=== PATIENT | male | born 1940 | race Caucasian/White ===

== ENCOUNTER 2021-04-14 01:54 | Inpatient (IN) | payer MEDICARE, OTHER ==
[~2021-04-14] VITALS: Ht 175.3 cm; Wt 79.4 kg
--- NOTE | 2021-04-14 02:10 | NUR ---
Patient BIB [facility] from home for c/o low 02 sats. Patient's Son states that patient 02 sats at home was 90% and was instructed to by PMD to go to ER. Patient's tested positive for covid 10 days ago.
[2021-04-14 02:26] LABS: CARBON DIOXIDE 22 mmol/L (21-32); CHLORIDE 102 mmol/L (98-107); CREATININE 3.4 mg/dL (0.6-1.3); GLUCOSE 163 mg/dL (74-106); POTASSIUM 3.3 mmol/L (3.5-5.1); UREA NITROGEN, BLOOD 45 mg/dL (7-18)
[2021-04-14 02:28] LABS: HEMATOCRIT 29.7 % (36.7-47.1); MEAN CORPUSCULAR HEMOGLOBIN 31.4 uug (23.8-33.4); MEAN CORPUSCULAR VOLUME 92.4 fL (73.0-96.2); PLATELET COUNT (AUTO) 115 K/uL (152-348)
[2021-04-14] MEDS ORDERED: DEXAMETHASONE SOD PHOSPHATE 4 MG INJ IV ONE (02:30)
[2021-04-14 02:45] LABS: ALANINE AMINOTRANSFERASE 30 U/L (16-63); ALKALINE PHOSPHATASE 93 U/L (50-136); ASPARTATE AMINOTRANSFERASE 44 U/L (15-37); BILIRUBIN,TOTAL 0.5 mg/dL (0.2-1.0); FERRITIN 758 ng/mL (26-388)
[2021-04-14] MEDS ORDERED: POTASSIUM BICARBONATE/CIT AC 25 MEQ TABLET.EFF PO ONE (03:00)
[2021-04-14] MEDS ORDERED: DEXAMETHASONE SOD PHOSPHATE 10 MG INJ ONE (03:00)
[2021-04-14] MEDS ORDERED: POTASSIUM BICARBONATE/CIT AC 25 MEQ TABLET.EFF ONE (03:08)
[2021-04-14] MEDS ORDERED: LEVO50TA8 PO (03:10)
[2021-04-14] MEDS ORDERED: RUXO10TA PO (03:10)
[2021-04-14] MEDS ORDERED: ASPI-1420 PO (03:10)
[2021-04-14] MEDS ORDERED: TAMS-3 PO (03:10)
--- NOTE | 2021-04-14 03:25 | NUR ---
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
--- NOTE | 2021-04-14 03:38 | NUR ---
Dr Hess spoke to Dr Gonzalez who accepted patient to in patient Tele.
[2021-04-14 04:00] VITALS: BP 130/66
--- NOTE | 2021-04-14 04:30 | NUR ---
Transfered to 3rd floor Tele via gurny with no distress noted.
[2021-04-14] MEDS ORDERED: MORPHINE SULFATE 2 MG/1 ML DISP.SYRIN IV PRN (05:00)
--- NOTE | 2021-04-14 05:01 | NUR ---
Admitted patient to Tele unit from ER accompanied by staff nurse via renato.Dx of covid PNA. Patient awake and alert verbally responsive , pitcairn islander speaking with O2 at LMP via Nc saturating at 92-93%.Ambulates to bathroom .Iv on right AC 18 g patent and intact.Notified of the admission. Awaiting for orders.
[2021-04-14] MEDS ORDERED: ONDANSETRON 4 MG/2 ML VIAL IV PRN (06:45)
[2021-04-14] MEDS ORDERED: TEMAZEPAM 15 MG CAPSULE PO PRN (06:45)
[2021-04-14] MEDS ORDERED: POTASSIUM CHLORIDE 20 MEQ in IV 1/2NS 1000 ML 1,000 ML IV PRN ×2 (06:45→08:00)
[2021-04-14] MEDS: PANTOPRAZOLE SODIUM 40 MG TABLET.DR PO SCH (07:07)
[2021-04-14] MEDS: LEVOTHYROXINE SODIUM 50 MCG TABLET PO SCH (07:07)
[2021-04-14] MEDS ORDERED: IV NS 1000 ML 1,000 ML IV ONE (08:00)
--- NOTE | 2021-04-14 08:00 | NUR ---
AWAKE ALERT AND ORIENTED X3, DENIES PAIN OR ACUTE DISTRESS WITH 3L NC SATURATING 93-94%. NOTED DRY COUGH. SR ON MONITOR. SEEN BY DR SMALLS
[2021-04-14] MEDS ORDERED: RUXOLITINIB PHOSPHATE 10 MG PO SCH (09:00)
[2021-04-14] MEDS: ACETAMINOPHEN 325 MG TABLET PO PRN (09:10)
[2021-04-14] MEDS: ASCORBIC ACID 500 MG TABLET PO SCH (09:10)
[2021-04-14] MEDS: ASPIRIN EC 81 MG TABLET.DR PO SCH (09:10)
[2021-04-14] MEDS: CHOLECALCIFEROL 1,000 UNIT TABLET PO SCH (09:10)
[2021-04-14] MEDS: HEPARIN SODIUM,PORCINE 5,000 UNITS/ML VIAL SQ SCH ×2 (09:30→20:35)
[2021-04-14] MEDS: [UNRECOGNIZED DRUG - OTHER] PO SCH ×2 (10:35→16:47)
[2021-04-14] MEDS: RUXOLITINIB 10 MG PO SCH ×2 (10:35→16:47)
[2021-04-14 11:38] VITALS: BP 129/60
--- NOTE | 2021-04-14 12:51 | NUR ---
SEEN BY DR VANG FOR PULMONOLOGY FOLLOW-UP SEE NOTES
[2021-04-14 15:52] VITALS: BP 117/46
[2021-04-14 20:00] VITALS: BP 112/53
[2021-04-14] MEDS: DOCUSATE SODIUM 100 MG CAPSULE PO SCH (20:33)
[2021-04-14] MEDS: TAMSULOSIN HCL 0.4 MG CAP.SR.24H PO SCH (20:33)
[2021-04-14] MEDS ORDERED: DOCUSATE SODIUM 250 MG CAPSULE PO SCH (21:00)
--- NOTE | 2021-04-14 22:54 | NUR ---
Received awake on bed with continuous O2 at 3lpm via NC, saturating at 91%. Denies pain and discomfort at this time. Midline inserted on MALACHI, flushed with NS and remains patent and intact. All needs attended. Call light placed within reach. Routine visual checks done. Will continue to monitor.
[2021-04-15] VITALS: BP 107/44
--- NOTE | 2021-04-15 00:12 | NUR ---
Patient desaturated at 74% on O2 at 2lpm via NC. HOB elevated, Ventolin inhaler given at 0029H. Patient put on O2 at 10L via non-rebreather, saturating at 91%. Rechecked patient at 0100H, O2 sat 98%. Call light placed within reach. Frequent visual checks done. Will continue to monitor.
[2021-04-15] MEDS: ALBUTEROL SULFATE 8 GM HFA.AER.AD IH PRN ×2 (00:19→10:54)
[2021-04-15 02:08] LABS: *BILIRUBIN,URIN NEGATIVE (NEGATIVE); *BLOOD, URINE 2+ (NEGATIVE); *CLARITY,URINE SLIGHTLY CLOUDY (CLEAR); *COLOR,URINE YELLOW (YELLOW); *KETONES,URINE NEGATIVE (NEGATIVE); *UROBILINOGEN,URINE 0.2 E.U./dl (NORMAL); LEUKOCYTE ESTERASE ,URINE NEGATIVE (NEGATIVE); NITRITE, URINE NEGATIVE (NEGATIVE); PH,URINE 5.5 (5.0-8.0); UGLUCOSE TRACE (NEGATIVE)
[2021-04-15 02:23] LABS: *CREATININE,URINE 197.3 mg/dL (30-125)
[2021-04-15 04:00] VITALS: BP 100/49
[2021-04-15 04:12] LABS: BACTERIA,URINE FEW /HPF (NONE SEEN); SQUAMOUS EPITHELIAL CELL,UR MODERATE /HPF (NONE SEEN); WBC,URINE 0-3 /HPF (0-3)
[2021-04-15 04:13] LABS: COARSE GRANULAR CASTS,URINE FEW /LPF; URINE AMORPHOUS URATE MODERATE /HPF
[2021-04-15] MEDS: PANTOPRAZOLE SODIUM 40 MG TABLET.DR PO SCH (06:02)
[2021-04-15] MEDS: LEVOTHYROXINE SODIUM 50 MCG TABLET PO SCH (06:02)
--- NOTE | 2021-04-15 06:37 | NUR ---
Patient slept intermittently throughout the night. On continuous O2 at 10 lpm via non-rebreather mask, saturating at 91-94%. Toileting assistance rendered. All needs attended. Call light placed within reach. Routine visual checks done. Will endorse to next shift for continuity of care.
[2021-04-15 07:31] LABS: HEMATOCRIT 27.9 % (36.7-47.1); MEAN CORPUSCULAR HEMOGLOBIN 31.4 uug (23.8-33.4); MEAN CORPUSCULAR VOLUME 94.5 fL (73.0-96.2); PLATELET COUNT (AUTO) 121 K/uL (152-348)
[2021-04-15 07:47] LABS: IRON, SERUM 16 ug/dL (50-175)
[2021-04-15 07:52] LABS: THYROID STIMULATING HORMONE 0.415 mIU/mL (0.358-3.740)
--- NOTE | 2021-04-15 08:00 | NUR ---
Pt received to care awake, oriented x4. Pt was on non-rebreather mask with O2 at 10lpm, saturating 80-84. Pt was adjusted to 15lpm. PRN Albuterol offered. Saturation 86-91%. PT notified. Pt is on continues oxygen monitoring. Pt denies distress. Pt has nonproductive occasional cough. Pt is compliant with medications. Spoke with the family, who requested updates. Pt is asked to use the urinal or comode and not to go to the bathroom and not to take off the mask. Patient verbalizes understanding. Pt is positioned upright in bed. Will continue to monitor.
[2021-04-15 08:15] LABS: ALANINE AMINOTRANSFERASE 44 U/L (16-63); ALKALINE PHOSPHATASE 114 U/L (50-136); ASPARTATE AMINOTRANSFERASE 78 U/L (15-37); BILIRUBIN,TOTAL 0.4 mg/dL (0.2-1.0); CARBON DIOXIDE 24 mmol/L (21-32); CHLORIDE 106 mmol/L (98-107); CHOLESTEROL 109 mg/dL (<200); FERRITIN 1560 ng/mL (26-388); GLUCOSE 111 mg/dL (74-106); HDL CHOLESTEROL 15 mg/dL (40-60); LACTATE DEHYDROGENASE 622 U/L (85-227); MAGNESIUM 2.5 mg/dL (1.8-2.4); PHOSPHOROUS 3.3 mg/dL (2.5-4.9); POTASSIUM 4.7 mmol/L (3.5-5.1); TOTAL PROTEIN, SERUM 6.5 g/dL (6.4-8.2); TRIGLYCERIDES 182 MG/DL (30-150); UREA NITROGEN, BLOOD 45 mg/dL (7-18)
[2021-04-15] MEDS: [UNRECOGNIZED DRUG - OTHER] PO SCH (08:24)
[2021-04-15] MEDS: RUXOLITINIB 10 MG PO SCH (08:24)
[2021-04-15] MEDS: ASCORBIC ACID 500 MG TABLET PO SCH (08:25)
[2021-04-15] MEDS: ASPIRIN EC 81 MG TABLET.DR PO SCH (08:25)
[2021-04-15] MEDS: CHOLECALCIFEROL 1,000 UNIT TABLET PO SCH (08:25)
[2021-04-15] MEDS: HEPARIN SODIUM,PORCINE 5,000 UNITS/ML VIAL SQ SCH ×2 (08:26→20:57)
[2021-04-15] MEDS ORDERED: DEXAMETHASONE SOD PHOSPHATE 4 MG INJ IV SCH (09:00)
--- NOTE | 2021-04-15 11:30 | NUR ---
Pt c/o nausea. PRN Zofran 4 mg Ivp was given at 1104. Pt states it was effective.
[2021-04-15 12:00] VITALS: BP 114/52
[2021-04-15] MEDS ORDERED: REMDESIVIR (CHARGED) 200 MG in IV NORMAL SALINE 210 ML IV ONE (13:00)
[2021-04-15] MEDS: DEXAMETHASONE SOD PHOSPHATE 4 MG INJ IV SCH ×2 (13:09→21:10)
[2021-04-15 16:23] VITALS: BP 110/51
--- NOTE | 2021-04-15 18:55 | NUR ---
Patient remains on 15 lpm on nonrebreather mask. O2 level 92-97%. Pt denies distress. Pt had poor intake, states he is not hungry and will eat later. Pt denies pain.
--- NOTE | 2021-04-15 20:00 | NUR ---
Pt on oxygen at 15L via non rebreather mask saturating 92%, no signs of distress. Denies pain or discomfort. IV access intact and patent. Safety measures initiated, repositioned comfortably in bed, call light within reach.
[2021-04-15] MEDS: DOCUSATE SODIUM 100 MG CAPSULE PO SCH (20:10)
[2021-04-15] MEDS: JAKAFI 10 MG PO SCH (20:10)
[2021-04-15] MEDS: TAMSULOSIN HCL 0.4 MG CAP.SR.24H PO SCH (20:11)
[2021-04-15 20:32] VITALS: BP 106/48
[2021-04-16 00:26] VITALS: BP 127/64
[2021-04-16 04:30] VITALS: BP 108/48
[2021-04-16] MEDS: DEXAMETHASONE SOD PHOSPHATE 4 MG INJ IV SCH ×3 (05:38→21:06)
[2021-04-16] MEDS: PANTOPRAZOLE SODIUM 40 MG TABLET.DR PO SCH (06:07)
[2021-04-16] MEDS: LEVOTHYROXINE SODIUM 50 MCG TABLET PO SCH (06:07)
--- NOTE | 2021-04-16 06:14 | NUR ---
Slept intermittently, assistance provided as needed. Oral care done. Repositioning done in bed for comfort. Tolerated due medications well. All needs attended to and met. No significant change in condition noted through the night.
[2021-04-16 07:46] LABS: HEMATOCRIT 30.5 % (36.7-47.1); MEAN CORPUSCULAR HEMOGLOBIN 30.6 uug (23.8-33.4); MEAN CORPUSCULAR VOLUME 94.1 fL (73.0-96.2); PLATELET COUNT (AUTO) 124 K/uL (152-348)
[2021-04-16 08:08] LABS: ALANINE AMINOTRANSFERASE 156 U/L (16-63); ALKALINE PHOSPHATASE 147 U/L (50-136); ASPARTATE AMINOTRANSFERASE 207 U/L (15-37); BILIRUBIN,DIRECT 0.2 mg/dL (0.0-0.2); BILIRUBIN,TOTAL 0.4 mg/dL (0.2-1.0); CARBON DIOXIDE 24 mmol/L (21-32); CHLORIDE 106 mmol/L (98-107); CREATININE 1.9 mg/dL (0.6-1.3); GLUCOSE 194 mg/dL (74-106); POTASSIUM 4.7 mmol/L (3.5-5.1); TOTAL PROTEIN, SERUM 6.9 g/dL (6.4-8.2); UREA NITROGEN, BLOOD 49 mg/dL (7-18)
[2021-04-16] MEDS: JAKAFI 10 MG PO SCH ×2 (08:10→21:06)
[2021-04-16] MEDS: CHOLECALCIFEROL 1,000 UNIT TABLET PO SCH (08:10)
[2021-04-16] MEDS: ASCORBIC ACID 500 MG TABLET PO SCH (08:10)
[2021-04-16] MEDS: ASPIRIN EC 81 MG TABLET.DR PO SCH (08:10)
[2021-04-16] MEDS: HEPARIN SODIUM,PORCINE 5,000 UNITS/ML VIAL SQ SCH ×2 (08:12→21:44)
[2021-04-16 11:08] VITALS: BP 126/45
[2021-04-16] MEDS: REMDESIVIR (CHARGED) 100 MG in IV NORMAL SALINE 100 ML IV SCH (13:16)
[2021-04-16 15:28] VITALS: BP 117/63
--- NOTE | 2021-04-16 19:23 | NUR ---
Patient resting in bed. AOx3-4. On 15L O2 via nonrebreather mask, saturating at 92%. No signs of acute distress. Patient denies pain/ discomfort. Left upper arm midline IV access, intact and patent. Safety measures provided. Needs anticipated and met. Will endorse to incoming shift for continuity of care. Addendum: 04/16/21 at 1929 by EASTON AGUILAR RN user error
--- NOTE | 2021-04-16 19:29 | NUR ---
Patient resting in bed. AO3-4. On 15L O2 via nonrebreather mask, saturating at 92%. No signs of acute distress. Patient denies pain/ discomfort. Left upper arm midline IV access, intact and patent. Safety measures provided. Needs anticipated and met. Will endorse to incoming shift for continuity of care.
[2021-04-16 20:18] VITALS: BP 126/45
[2021-04-16] MEDS: TAMSULOSIN HCL 0.4 MG CAP.SR.24H PO SCH (21:05)
[2021-04-16] MEDS: DOCUSATE SODIUM 100 MG CAPSULE PO SCH (21:05)
[2021-04-17 00:03] VITALS: BP 128/55
[2021-04-17 04:18] VITALS: BP 114/54
[2021-04-17] MEDS: DEXAMETHASONE SOD PHOSPHATE 4 MG INJ IV SCH ×3 (06:03→21:15)
[2021-04-17] MEDS: PANTOPRAZOLE SODIUM 40 MG TABLET.DR PO SCH (06:04)
[2021-04-17] MEDS: LEVOTHYROXINE SODIUM 50 MCG TABLET PO SCH (06:04)
--- NOTE | 2021-04-17 06:48 | NUR ---
PAtient awake verbally responsive guyanese speaking.On 15L O2 via nonrebreather mask, saturating at 91%-92%. No signs of acute distress.HOB remain elevated.Breathing tx given. Left upper arm midline IV access, intact and patent. Safety measures provided.Continue on isolation for covid. Needs anticipated and met. Will endorse to incoming shift for continuity of care.
[2021-04-17] MEDS: JAKAFI 10 MG PO SCH ×2 (08:00→21:14)
--- NOTE | 2021-04-17 08:00 | NUR ---
Pt is in no acute distress. DR GONZALEZ and Sarah here to see patient. New orders received and carried out. 02 sat 91% o2 @ 15L NRB mask. Pt american speaking but able to make his needs known.
[2021-04-17 08:21] LABS: HEMATOCRIT 33.2 % (36.7-47.1); MEAN CORPUSCULAR HEMOGLOBIN 30.9 uug (23.8-33.4); MEAN CORPUSCULAR VOLUME 94.3 fL (73.0-96.2); PLATELET COUNT (AUTO) 168 K/uL (152-348)
[2021-04-17] MEDS: ASPIRIN EC 81 MG TABLET.DR PO SCH (08:34)
[2021-04-17] MEDS: CHOLECALCIFEROL 1,000 UNIT TABLET PO SCH (08:34)
[2021-04-17] MEDS: ASCORBIC ACID 500 MG TABLET PO SCH (08:34)
[2021-04-17] MEDS: HEPARIN SODIUM,PORCINE 5,000 UNITS/ML VIAL SQ SCH ×2 (08:36→21:33)
[2021-04-17 08:48] LABS: ALANINE AMINOTRANSFERASE 144 U/L (16-63); ALKALINE PHOSPHATASE 139 U/L (50-136); ASPARTATE AMINOTRANSFERASE 107 U/L (15-37); BILIRUBIN,DIRECT 0.2 mg/dL (0.0-0.2); BILIRUBIN,TOTAL 0.5 mg/dL (0.2-1.0); CARBON DIOXIDE 24 mmol/L (21-32); CHLORIDE 106 mmol/L (98-107); CREATININE 1.4 mg/dL (0.6-1.3); GLUCOSE 150 mg/dL (74-106); POTASSIUM 4.4 mmol/L (3.5-5.1); TOTAL PROTEIN, SERUM 6.9 g/dL (6.4-8.2); UREA NITROGEN, BLOOD 54 mg/dL (7-18)
--- NOTE | 2021-04-17 10:30 | NUR ---
HENRIK done. PT put on HIGH FLOW 40 lit @ 100%+NRB @15 LIT by RT. Addendum: 04/17/21 at 1823 by JOVAN MONTOYA RN 02 sat 94%.
[2021-04-17 12:00] VITALS: BP 114/67
--- NOTE | 2021-04-17 12:30 | NUR ---
PT was only able to tolerate prone position for 5 mins.
[2021-04-17 12:45] LABS: ABG BASE EXCESS 0.3 mmol/L; ABG HCO3 23.5 mmol/L; ABG PH 7.471 (7.350-7.450); ABG PO2 60.2 mmHg (75.0-100.0); ABG SITE RIGHT RADIAL; ABG TOTAL HEMOGLOBIN 11.1 G/dL (13.5-18.0); COHb 0.4 % (0.5-1.5); MetHb 0.3 % (0.0-1.5); O2Hb 88.9 % (94.0-97.0); VENT MODE HF - 40 Lpm - 100%
[2021-04-17] MEDS: REMDESIVIR (CHARGED) 100 MG in IV NORMAL SALINE 100 ML IV SCH (13:14)
[2021-04-17 16:00] VITALS: BP 119/54
--- NOTE | 2021-04-17 18:26 | NUR ---
o2 sat 96%. pt is in no acute distress. High flow 40 lit @100% + NRB 15 lit.
[2021-04-17 20:20] VITALS: BP 112/51
[2021-04-17] MEDS: TAMSULOSIN HCL 0.4 MG CAP.SR.24H PO SCH (21:15)
[2021-04-17] MEDS: DOCUSATE SODIUM 100 MG CAPSULE PO SCH (21:15)
[2021-04-18] VITALS (8 sets, daily range): BP systolic 117–129; BP diastolic 42–56
[2021-04-18] MEDS: LEVOTHYROXINE SODIUM 50 MCG TABLET PO SCH (06:04)
[2021-04-18] MEDS: DEXAMETHASONE SOD PHOSPHATE 4 MG INJ IV SCH ×3 (06:04→22:17)
[2021-04-18] MEDS: PANTOPRAZOLE SODIUM 40 MG TABLET.DR PO SCH (06:04)
--- NOTE | 2021-04-18 06:56 | NUR ---
Pt in no acute distress.Slept throughout the night. Denies having SOB. Sating 88-94%. IV site intact. Safety and comfort provided. Will endorse to day shift.
[2021-04-18 07:18] LABS: HEMATOCRIT 31.1 % (36.7-47.1); MEAN CORPUSCULAR VOLUME 92.5 fL (73.0-96.2); PLATELET COUNT (AUTO) 189 K/uL (152-348)
[2021-04-18 07:38] LABS: BILIRUBIN,DIRECT 0.3 mg/dL (0.0-0.2); BILIRUBIN,TOTAL 0.8 mg/dL (0.2-1.0); CREATININE 1.3 mg/dL (0.6-1.3); POTASSIUM 4.4 mmol/L (3.5-5.1); TOTAL PROTEIN, SERUM 6.2 g/dL (6.4-8.2)
[2021-04-18] MEDS: ASPIRIN EC 81 MG TABLET.DR PO SCH (08:27)
[2021-04-18] MEDS: ASCORBIC ACID 500 MG TABLET PO SCH (08:27)
[2021-04-18] MEDS: CHOLECALCIFEROL 1,000 UNIT TABLET PO SCH (08:27)
[2021-04-18] MEDS: HEPARIN SODIUM,PORCINE 5,000 UNITS/ML VIAL SQ SCH ×2 (08:28→20:12)
[2021-04-18] MEDS: JAKAFI 10 MG PO SCH ×2 (08:50→20:08)
[2021-04-18] MEDS: REMDESIVIR (CHARGED) 100 MG in IV NORMAL SALINE 100 ML IV SCH (12:37)
--- NOTE | 2021-04-18 12:37 | NUR ---
REMDESIVIR INFUSSION STARTED ORDERED WITH NO ADVERSE OR ALLERGIC REACTIONS AT THIS TIME.
[2021-04-18 14:03] LABS: *BILIRUBIN,URIN NEGATIVE (NEGATIVE); *BLOOD, URINE NEGATIVE (NEGATIVE); *COLOR,URINE YELLOW (YELLOW); *KETONES,URINE NEGATIVE (NEGATIVE); *UROBILINOGEN,URINE 0.2 E.U./dl (NORMAL); LEUKOCYTE ESTERASE ,URINE NEGATIVE (NEGATIVE); NITRITE, URINE NEGATIVE (NEGATIVE); PH,URINE 5.5 (5.0-8.0)
[2021-04-18 14:10] LABS: UGLUCOSE 2+ (NEGATIVE)
[2021-04-18 14:13] LABS: *CLARITY,URINE SLIGHTLY HAZY (CLEAR)
[2021-04-18 14:14] LABS: BACTERIA,URINE FEW /HPF (NONE SEEN); RBC,URINE 0-3 /HPF (0-3); SQUAMOUS EPITHELIAL CELL,UR FEW /HPF (NONE SEEN); URIC ACID CRYSTALS,URINE FEW /HPF (NONE SEEN); URINE AMORPHOUS URATE FEW /HPF; WBC,URINE 0-3 /HPF (0-3)
--- NOTE | 2021-04-18 14:40 | NUR ---
REMDESIVIR COMPLETED ORDERED WITH NO ADVERSE OR ALLERGIC REACTIONS AT THIS TIME.
[2021-04-18] MEDS ORDERED: ACETAMINOPHEN 650 MG/20.3 ML LIQUID UDC NG ONE (15:15)
[2021-04-18] MEDS ORDERED: diphenhydrAMINE 50 MG/1 ML VIAL IV ONE (15:15)
[2021-04-18] MEDS ORDERED: methylPREDNISolone SOD SUCC 40 MG/ML VIAL IV ONE (15:15)
[2021-04-18 15:42] LABS: BAND % (MANUAL) 4 % (0-10); LYMPHOCYTES % (MANUAL) 6 % (20-40); MONOCYTES % (MANUAL) 5 % (2-10); NEUTROPHILS % (MANUAL) 85 % (42-75)
[2021-04-18] MEDS ORDERED: TOCILIZUMAB 600 MG in IV NORMAL SALINE 70 ML IV ONE (16:00)
--- NOTE | 2021-04-18 19:30 | NUR ---
RECEIVED PT AWAKE, ALERT AND ORIENTEDX3. PT IN NO ACUTE DISTRESS. IV INTACT. PT ON DOUBLE SETUP OXYGEN.PT ON HIGH FLOW 40L/MIN AND NONREBREATHER MASK15%. PT ON SINUS RHYTHM. SON VISITED AND GAVE THE NURSE DENTURES CUP FOR HIS DAD. SAFETY AND COMFORT PROVIDED. WILL CONTINUE TO MONITOR.
[2021-04-18] MEDS: DOCUSATE SODIUM 100 MG CAPSULE PO SCH (20:08)
[2021-04-18] MEDS: TAMSULOSIN HCL 0.4 MG CAP.SR.24H PO SCH (20:08)
[2021-04-18] MEDS: ACETAMINOPHEN 325 MG TABLET PO PRN (20:15)
[2021-04-19] VITALS: BP 114/49
[2021-04-19 04:00] VITALS: BP 122/51
[2021-04-19] MEDS: DEXAMETHASONE SOD PHOSPHATE 4 MG INJ IV SCH ×3 (05:55→21:26)
[2021-04-19] MEDS: LEVOTHYROXINE SODIUM 50 MCG TABLET PO SCH (06:27)
[2021-04-19] MEDS: PANTOPRAZOLE SODIUM 40 MG TABLET.DR PO SCH (06:27)
--- NOTE | 2021-04-19 06:33 | NUR ---
PT SLEPT INTERMITTENTLY. PT IN NO ACUTE RESPIRATORY DISTRESS. IV INTACT. PT IN 40L/MIN HIGHFLOW OXYGEN WITH NONREBREATHER MASK ON 15%. PT ON SINUS RHYTHM. PRESCRIBED MEDICATION GIVEN AND PT TOLERATED IT WELL. TYLENOL 650 MG PRN GIVEN AT 2015H.SAFETY AND COMFORT PROVIDED. ALL NEEDS ARE MET. WILL ENDORSE TO INCOMING NURSE FOR CONTINUITY OF CARE.
[2021-04-19 06:37] LABS: HEMATOCRIT 31.2 % (36.7-47.1); MEAN CORPUSCULAR HEMOGLOBIN 29.9 uug (23.8-33.4); MEAN CORPUSCULAR VOLUME 92.2 fL (73.0-96.2); PLATELET COUNT (AUTO) 197 K/uL (152-348)
[2021-04-19 07:02] LABS: BILIRUBIN,DIRECT 0.2 mg/dL (0.0-0.2); BILIRUBIN,TOTAL 0.7 mg/dL (0.2-1.0); CREATININE 1.3 mg/dL (0.6-1.3); MAGNESIUM 2.8 mg/dL (1.8-2.4); PHOSPHOROUS 4.4 mg/dL (2.5-4.9); POTASSIUM 4.6 mmol/L (3.5-5.1)
--- NOTE | 2021-04-19 07:30 | NUR ---
received in bed awake and alert oriented. on high flow 40lpm fio2 100% nc and nrb 15lpm. breathing even and non labored. comfortable. spo2 96%. denies pain at this time. occasional non productive coughing noted. justin midline intact and patent. bed low and locked. encouraged to use call light when he needs anything. call light within easy reach. will continue to monitor.
[2021-04-19] MEDS: CHOLECALCIFEROL 1,000 UNIT TABLET PO SCH (09:18)
[2021-04-19] MEDS: JAKAFI 10 MG PO SCH ×2 (09:18→19:59)
[2021-04-19] MEDS: ASCORBIC ACID 500 MG TABLET PO SCH (09:18)
[2021-04-19] MEDS: ASPIRIN EC 81 MG TABLET.DR PO SCH (09:19)
[2021-04-19] MEDS: HEPARIN SODIUM,PORCINE 5,000 UNITS/ML VIAL SQ SCH ×2 (09:19→21:25)
--- NOTE | 2021-04-19 09:50 | NUR ---
Spoke with patient's son Art and given update. He was appreciative.
--- NOTE | 2021-04-19 10:02 | NUR ---
Per [facility] patient's son is authorized to visit 2 hrs in the patient's room. Son is aware.
[2021-04-19 10:59] VITALS: BP 112/60
--- NOTE | 2021-04-19 11:07 | NUR ---
Patient on high nc flow 40 lpm fio2 100% tolerating very well. Sitting at edge of bed with son at bedside. Breathing even and non labored. Denies pain or difficulty breathing. spo2 97%.
--- NOTE | 2021-04-19 12:28 | NUR ---
Patient on nc high flow 40 lpm fio2 100% tolerating well. spo2 95-96%. denies pain or difficulty breathing. patient using urinal with son's assistance. no sob noted.
[2021-04-19] MEDS: REMDESIVIR (CHARGED) 100 MG in IV NORMAL SALINE 100 ML IV SCH (12:54)
--- NOTE | 2021-04-19 14:30 | NUR ---
Remdesivir completed with no adverse or allergic reaction noted at this time.
[2021-04-19 15:44] VITALS: BP 139/54
[2021-04-19] MEDS: ENSURE ENLIVE (VAN) 240 ML LIQUID PO SCH (17:15)
--- NOTE | 2021-04-19 17:16 | NUR ---
Patient resting in bed on hi flow nc 40 lpm fio2 100%. No sob noted. spo2 92%. Bed low and locked. Call light within reach.
--- NOTE | 2021-04-19 19:00 | NUR ---
Patient was on high flow 40lpm fio2 100% nc for most of the afternoon but has shortness of breath on exertion. Put on high flow 40 lpm fio2 100% and nrb 15 lpm to keep o2 saturation above 92%. Current spo2 is 97%. Breathing non labored. No s/sx of pain or discomfort. Patient appears comfortable. Safety measures maintained. Needs attended. Will endorse accordingly.
--- NOTE | 2021-04-19 19:30 | NUR ---
RECEIVED PT AWAKE, ALERT AND ORIENTEDX3. PT ON HIGH FLOW OXYGEN 40L/MIN AND 15% NONREBREATHER MASK IN CONTINUOUS PULSE OXIMETER. PT ON SINUS RHYTHM. IV INTACT. CAN MAKE HIS NEEDS KNOWN. SAFETY AND COMFORT PROVIDED. WILL CONTINUE TO MONITOR.
[2021-04-19 20:00] VITALS: BP 126/57
[2021-04-19] MEDS: TAMSULOSIN HCL 0.4 MG CAP.SR.24H PO SCH (20:00)
[2021-04-19] MEDS: DOCUSATE SODIUM 100 MG CAPSULE PO SCH (20:00)
[2021-04-19] MEDS: ACETAMINOPHEN 325 MG TABLET PO PRN (20:09)
[2021-04-20] VITALS: BP 124/56
[2021-04-20 04:00] VITALS: BP 111/55
[2021-04-20] MEDS: DEXAMETHASONE SOD PHOSPHATE 4 MG INJ IV SCH ×3 (05:27→21:34)
[2021-04-20] MEDS: PANTOPRAZOLE SODIUM 40 MG TABLET.DR PO SCH (06:13)
[2021-04-20] MEDS: LEVOTHYROXINE SODIUM 50 MCG TABLET PO SCH (06:13)
--- NOTE | 2021-04-20 06:14 | NUR ---
PT SLEPT INTERMITTENTLY. PT IN NO ACUTE DISTRESS. IV INTACT. PRESCRIBED MEDICATION GIVEN AND PT TOLERATED IT WELL. PT ON HIGH FLOW AND NONREBREATHER MASK. PT ON SINUS RHYTHM. TYLENOL PRN 650MG GIVEN AT 2009H. SON CALLED TO GET UPDATE REGARDING HIS DAD. AT 0545H PT ACCIDENTALLY PULLED OUT HIS OXYGEN. RN WENT TO HIS ROOM AND FIX IT. PT IN NO ACUTE DISTRESS. PT OXYGEN SATURATION IS 94%. TOLD PT TO BE CAREFUL. SAFETY AND COMFORT PROVIDED. WILL ENDORSE TO INCOMING NURSE FOR CONTINUITY OF CARE.
[2021-04-20 08:00] VITALS: BP 125/56
--- NOTE | 2021-04-20 08:00 | NUR ---
Received patient awake, alert/oriented x3. No distress noted. On high flow, double set up, saturating at 90-94%. IV site, intact, no infiltration seen. Kept on his comfortable position. Denies pain. Call light within reach. Will continue to monitor. Safety precaution maintained.
[2021-04-20] MEDS: JAKAFI 10 MG PO SCH ×2 (08:34→20:15)
[2021-04-20] MEDS: ASPIRIN EC 81 MG TABLET.DR PO SCH (08:35)
[2021-04-20] MEDS: ASCORBIC ACID 500 MG TABLET PO SCH (08:35)
[2021-04-20] MEDS: CHOLECALCIFEROL 1,000 UNIT TABLET PO SCH (08:35)
[2021-04-20] MEDS: HEPARIN SODIUM,PORCINE 5,000 UNITS/ML VIAL SQ SCH ×2 (08:36→20:17)
[2021-04-20] MEDS: ENSURE ENLIVE (VAN) 240 ML LIQUID PO SCH ×2 (08:37→16:02)
--- NOTE | 2021-04-20 10:30 | NUR ---
Patient son is at bedside. Patient denies pain and SOB. Morning care done. Safety measures maintained. Kept call light within reach. Will continue to monitor.
[2021-04-20 11:00] VITALS: BP 120/58
[2021-04-20 16:00] VITALS: BP 125/60
--- NOTE | 2021-04-20 17:42 | NUR ---
Patient had episodes of desaturation at 87-90% with minimal exertion. Saturating at 95-97% most of the time. Denies pain. Assisted with all his needs. Noted with 1xBM, sample sent to the lab as ordered for occult blood. Uses urinal and commode at bedside. IV line intact. MD made rounds, Dr. Bobby and Dr Chakraborty, orders acknowledged. Per MD Infectious dis consulted. All due meds given as ordered. Needs attended. Kept comfortable and repositioned to promote comfort. Call light within reach. Safety measures maintained. Will continue to monitor fo any significant changes.
--- NOTE | 2021-04-20 18:29 | NUR ---
Patient denies discomfort. He is saturating at 96% on high flow. Comfortably lying in his bed. Denies pain. Kept call light within reach. Will endorsed to the next shift.
[2021-04-20 20:00] VITALS: BP 114/69
[2021-04-20] MEDS: DOCUSATE SODIUM 100 MG CAPSULE PO SCH (20:16)
[2021-04-20] MEDS: TAMSULOSIN HCL 0.4 MG CAP.SR.24H PO SCH (20:16)
[2021-04-20] MEDS: FUROSEMIDE 20 MG/2 ML VIAL IV SCH (20:17)
[2021-04-21] VITALS: BP 117/65
[2021-04-21] MEDS: TEMAZEPAM 7.5 MG CAPSULE PO PRN ×2 (00:53→21:45)
[2021-04-21] MEDS: ACETAMINOPHEN 325 MG TABLET PO PRN ×2 (00:54→23:41)
[2021-04-21 04:00] VITALS: BP 110/54
[2021-04-21] MEDS: LEVOTHYROXINE SODIUM 50 MCG TABLET PO SCH (05:52)
[2021-04-21] MEDS: PANTOPRAZOLE SODIUM 40 MG TABLET.DR PO SCH (05:52)
[2021-04-21] MEDS: DEXAMETHASONE SOD PHOSPHATE 4 MG INJ IV SCH ×3 (05:53→21:45)
[2021-04-21 06:13] LABS: HEMATOCRIT 35.8 % (36.7-47.1); MEAN CORPUSCULAR HEMOGLOBIN 30.5 uug (23.8-33.4); PLATELET COUNT (AUTO) 271 K/uL (152-348)
--- NOTE | 2021-04-21 06:13 | NUR ---
Shift End Report: Alert and oriented x 3=4, very needy, constantly calling nurse. Frequent/constant close monitoring/supervision rendered due to constant removal of nasal cannula and face mask that tends him to desaturate. RT always at bedside. All needs attended and met,. Continue care as planned.
[2021-04-21 06:35] LABS: CARBON DIOXIDE 26 mmol/L (21-32); CHLORIDE 106 mmol/L (98-107); CREATININE 1.5 mg/dL (0.6-1.3); FERRITIN 824 ng/mL (26-388); GLUCOSE 171 mg/dL (74-106); LACTATE DEHYDROGENASE 874 U/L (85-227); MAGNESIUM 2.4 mg/dL (1.8-2.4); PHOSPHOROUS 5.3 mg/dL (2.5-4.9); POTASSIUM 4.6 mmol/L (3.5-5.1); UREA NITROGEN, BLOOD 49 mg/dL (7-18)
--- NOTE | 2021-04-21 07:10 | NUR ---
RECEIVED PATIENT IN BED AWAKE, PATIENT ON 15L NASAL CANULA AND HIFLOW AT 40L 100% SATURATION AT 92%-93%. DENIES ANY PAIN OR DISCOMFORT AT THIS TIME. CALL LIGHT AND BELONGINGS WITHIN REACH. WILL CONTINUE TO MONITOR.
[2021-04-21] MEDS: CHOLECALCIFEROL 1,000 UNIT TABLET PO SCH (08:29)
[2021-04-21] MEDS: FUROSEMIDE 20 MG/2 ML VIAL IV SCH ×2 (08:29→20:09)
[2021-04-21] MEDS: ASPIRIN EC 81 MG TABLET.DR PO SCH (08:29)
[2021-04-21] MEDS: ASCORBIC ACID 500 MG TABLET PO SCH (08:29)
[2021-04-21] MEDS: HEPARIN SODIUM,PORCINE 5,000 UNITS/ML VIAL SQ SCH ×2 (08:32→20:12)
[2021-04-21] MEDS: ENSURE ENLIVE (VAN) 240 ML LIQUID PO SCH ×2 (08:34→17:29)
[2021-04-21] MEDS: JAKAFI 10 MG PO SCH ×2 (08:41→20:09)
[2021-04-21 11:28] VITALS: BP 119/54
[2021-04-21 15:34] VITALS: BP 130/68
--- NOTE | 2021-04-21 18:10 | NUR ---
PATIENT IN BED AWAKE IN STABLE CONDITION, HOB ELEVATED. NO COMPLAINS OF ANY PAIN OR DISCOMFORT AT THIS TIME. ON HIFLOW AT 40L AND 15L NASAL CANULA SATURATION AT 92 %. SAFETY PRECAUTIONS IN PLACE. CALL LIGHT AND BELONGINGS WITHIN REACH. WILL REPORT TO ONCOMING SHIFT.
--- NOTE | 2021-04-21 19:10 | NUR ---
Patient report received. Patient seen in room sitting in his chair. Awake, alert and oriented x 3 to person, place, and time. No signs of distress at this time. Patient is on high flow and 15L face mask. Saturating between 92-94. Patient is continent. Midline left upper arm. Skin intact. No reports of SOB at this time. Sinus rhythm on TELE. Bed in low and locked position. Call light within reach.
[2021-04-21] MEDS: DOCUSATE SODIUM 100 MG CAPSULE PO SCH (20:09)
[2021-04-21] MEDS: TAMSULOSIN HCL 0.4 MG CAP.SR.24H PO SCH (20:09)
[2021-04-21 20:44] VITALS: BP 127/72
[2021-04-21] MEDS ORDERED: CEFEPIME HCL 1 G VIAL ONE (23:30)
[2021-04-21] MEDS: CEFEPIME HCL 1 G in IV DEXTROSE 5% 50 ML IV SCH (23:42)
[2021-04-22 00:21] VITALS: BP 125/59
[2021-04-22 04:00] VITALS: BP 135/60
[2021-04-22] MEDS: LEVOTHYROXINE SODIUM 50 MCG TABLET PO SCH (06:22)
[2021-04-22] MEDS: PANTOPRAZOLE SODIUM 40 MG TABLET.DR PO SCH (06:22)
[2021-04-22] MEDS: DEXAMETHASONE SOD PHOSPHATE 4 MG INJ IV SCH ×3 (06:23→21:10)
[2021-04-22] MEDS: CEFEPIME HCL 1 G in IV DEXTROSE 5% 50 ML IV SCH (06:23)
[2021-04-22 06:24] LABS: HEMATOCRIT 35.7 % (36.7-47.1); MEAN CORPUSCULAR HEMOGLOBIN 30.5 uug (23.8-33.4); MEAN CORPUSCULAR VOLUME 91.6 fL (73.0-96.2); PLATELET COUNT (AUTO) 266 K/uL (152-348)
[2021-04-22 06:41] LABS: CARBON DIOXIDE 26 mmol/L (21-32); CHLORIDE 103 mmol/L (98-107); CREATININE 1.6 mg/dL (0.6-1.3); GLUCOSE 149 mg/dL (74-106); MAGNESIUM 2.5 mg/dL (1.8-2.4); PHOSPHOROUS 5.5 mg/dL (2.5-4.9); POTASSIUM 4.4 mmol/L (3.5-5.1); UREA NITROGEN, BLOOD 60 mg/dL (7-18)
--- NOTE | 2021-04-22 06:59 | NUR ---
Patient slept well through the night. Awake, alert and oriented x 3 to person, place, and time. Patient comfortable on high flow and face mask. Desats when either one is removed. Occasional shortness of breath present upon exertion. Sinus rhythm on monitor. Fall and safety precautions in place. Call light within reach.
--- NOTE | 2021-04-22 07:30 | NUR ---
Received patient is bed, awake and alert times 2. Some confusion can be noted. Patient is on room air. Patient has wound in the groin, Left upper arm midline. Safety precautions are in place. Will continue to monitor. Addendum: 04/22/21 at 1857 by CHRISTINE GRAHAM RN Wrong patient.
--- NOTE | 2021-04-22 07:30 | NUR ---
Received patient is bed, awake and alert times 4, Patient is Kosovan speaking. Patient breathing is labored. He is on high flow 40L and non rebreather 15L. Left upper arm midline. Safety precautions are in place. Will continue to monitor.
[2021-04-22] MEDS: ENSURE ENLIVE (VAN) 240 ML LIQUID PO SCH ×3 (09:00→17:39)
[2021-04-22] MEDS: CHOLECALCIFEROL 1,000 UNIT TABLET PO SCH (09:34)
[2021-04-22] MEDS: ASCORBIC ACID 500 MG TABLET PO SCH (09:34)
[2021-04-22] MEDS: ASPIRIN EC 81 MG TABLET.DR PO SCH (09:34)
[2021-04-22] MEDS: HEPARIN SODIUM,PORCINE 5,000 UNITS/ML VIAL SQ SCH ×2 (09:35→21:39)
[2021-04-22] MEDS: FUROSEMIDE 20 MG/2 ML VIAL IV SCH (09:35)
[2021-04-22] MEDS: JAKAFI 10 MG PO SCH ×2 (09:55→20:55)
[2021-04-22 12:00] VITALS: BP 136/72
[2021-04-22] MEDS: MIRALAX 17 GM POWD.PACK PO SCH (14:06)
[2021-04-22] MEDS: DOCUSATE SODIUM 100 MG CAPSULE PO SCH ×2 (14:06→20:56)
[2021-04-22] MEDS: ACETAMINOPHEN 325 MG TABLET PO PRN ×2 (14:06→21:48)
[2021-04-22 14:51] LABS: LYMPHOCYTES % (MANUAL) 7 % (20-40); NEUTROPHILS % (MANUAL) 90 % (42-75)
[2021-04-22 14:52] LABS: MONOCYTES % (MANUAL) 3 % (2-10)
[2021-04-22] MEDS: CEFEPIME HCL 2 G in IV DEXTROSE 5% 100 ML IV SCH (15:32)
[2021-04-22 15:46] VITALS: BP 123/68
--- NOTE | 2021-04-22 19:43 | NUR ---
Patient left resting in bed no sign of distress noted. All medications given as ordered. Safety ,measures implemented. Will endorse to oncoming nurse.
--- NOTE | 2021-04-22 19:50 | NUR ---
RECEIVED PATIENT SEATED IN WHEELCHAIR, SON AT THE ROOM. PATIENT HAS NO SOB NO CHEST PAIN, NO COMPLAIN OF PAIN AT THIS TIME, PATIENT ON HIGH FLOW 40 LITERS, 15 LITERS NON REBREATHER MASK. PATIENT TOLERATE WELL, NO DESATURATION NOTED, SON ABLE TO INTERPRET FOR THE PATIENT, CONT TO MONITOR.
[2021-04-22] MEDS ORDERED: IV NS 1000 ML 1,000 ML IV PRN (20:00)
[2021-04-22 20:20] VITALS: BP 113/59
[2021-04-22] MEDS: TAMSULOSIN HCL 0.4 MG CAP.SR.24H PO SCH (20:56)
[2021-04-22] MEDS: TEMAZEPAM 7.5 MG CAPSULE PO PRN (21:48)
[2021-04-23] MEDS: CEFEPIME HCL 2 G in IV DEXTROSE 5% 100 ML IV SCH (02:37)
[2021-04-23 04:25] VITALS: BP 119/59
--- NOTE | 2021-04-23 04:37 | NUR ---
PATIENT HAS EPISODES OF COUGHING, WITH SAT 88% TO 91%, GIVEN ALBUTEROL PUFF AND CALLED RT, RT WENT TO CHECK PATIENT AND HIGH FLOW O2 PLUS NASAL CANNULA, PULSE OXIMETER. PATIENT SAT NOW 94% TO 96%, NO COMPLAIN OF SOB, KEPT COMFORTABLE. CONT TO MONITOR.
[2021-04-23] MEDS: DEXAMETHASONE SOD PHOSPHATE 4 MG INJ IV SCH ×3 (05:37→22:46)
[2021-04-23] MEDS: LEVOTHYROXINE SODIUM 50 MCG TABLET PO SCH (06:40)
[2021-04-23] MEDS: PANTOPRAZOLE SODIUM 40 MG TABLET.DR PO SCH (06:40)
--- NOTE | 2021-04-23 06:46 | NUR ---
PATIENT ALERT ORIENTED, NO CHEST PAIN, STILL EPISODE OF SHORT OF BREATH WHEN OFF OXYGEN, OXYGEN SAT 91-99% ON HIGH FLOW 40 LITERS, AND 15 LITERS NASAL CANNULA. PATIENT TELE MONITOR SINUS RHYTHM AT THIS TIME, CONT TO MONITOR.
[2021-04-23 07:08] LABS: HEMATOCRIT 38.6 % (36.7-47.1); MEAN CORPUSCULAR HEMOGLOBIN 30.6 uug (23.8-33.4); MEAN CORPUSCULAR VOLUME 92.7 fL (73.0-96.2); PLATELET COUNT (AUTO) 285 K/uL (152-348)
--- NOTE | 2021-04-23 08:00 | NUR ---
PT IN BED RESTING, PT ON HIGH FLOW O2 40L, AND NONREBREATHER AT 15L. PT SATURATING AT 90 ON O2 MONITOR. PT LUXEMBOURGISH SPEAKING, TELE MONITOR NSR, PT USES URINAL TO VOID. PT HAS LEFT UA ML INFUSING NS AT 75CC/HR. BED LOW AND LOCKED, CALL LIGHT WITHIN REACH, HOB SEMI FOWLERS, CHAIR NEST TO BED, PT TRANSFERS WITH ASSIST. WILL CONTINUE WITH PLAN OF CARE.
[2021-04-23 08:05] LABS: CARBON DIOXIDE 24 mmol/L (21-32); CHLORIDE 103 mmol/L (98-107); CREATININE 1.4 mg/dL (0.6-1.3); GLUCOSE 149 mg/dL (74-106); MAGNESIUM 2.7 mg/dL (1.8-2.4); PHOSPHOROUS 5.1 mg/dL (2.5-4.9); POTASSIUM 5.1 mmol/L (3.5-5.1); UREA NITROGEN, BLOOD 63 mg/dL (7-18)
[2021-04-23] MEDS: ASPIRIN EC 81 MG TABLET.DR PO SCH (08:25)
[2021-04-23] MEDS: ASCORBIC ACID 500 MG TABLET PO SCH (08:25)
[2021-04-23] MEDS: CHOLECALCIFEROL 1,000 UNIT TABLET PO SCH (08:25)
[2021-04-23] MEDS: DOCUSATE SODIUM 100 MG CAPSULE PO SCH ×2 (08:25→20:00)
[2021-04-23] MEDS: JAKAFI 10 MG PO SCH ×2 (08:25→19:59)
[2021-04-23] MEDS: ENSURE ENLIVE (VAN) 240 ML LIQUID PO SCH ×3 (08:26→17:11)
[2021-04-23] MEDS: MIRALAX 17 GM POWD.PACK PO SCH (08:26)
[2021-04-23] MEDS: HEPARIN SODIUM,PORCINE 5,000 UNITS/ML VIAL SQ SCH ×2 (08:28→20:03)
--- NOTE | 2021-04-23 10:10 | NUR ---
PROCEDURE CONSENT SIGNED BY SON FOR CTA. PT CONCERNED ABOUT KIDNEY FUNCTION, SPOKE WITH NEPHROLOGY AND GAVE THE OKAY TO PROCEED.
--- NOTE | 2021-04-23 11:00 | NUR ---
PT SON NO LONGER CONSENTS TO CTA, SON STATED THAT HE CALLED THE DADS PRIMARY DOCTOR AND STATED THAT HE SHOULD NOT DO THE CTA. MD MADE AWARE, CTA CANCELLED. WILL CONTINUE TO MONITOR.
[2021-04-23 12:00] VITALS: BP 123/67
--- NOTE | 2021-04-23 12:30 | NUR ---
PT SON STATED THAT IT IS HARD TO THE DAD TO EAT, AND A "SOFTER DIET MAY BE BETTER FOR HIM HIS GUMS ARE SENSITIVE FROM THE DENTURE".
[2021-04-23] MEDS ORDERED: levoFLOXacin 750MG/D5W 750 MG in PREMIXED 1 EACH IV SCH (15:00)
[2021-04-23] MEDS: TAMSULOSIN HCL 0.4 MG CAP.SR.24H PO SCH (20:00)
--- NOTE | 2021-04-23 20:16 | NUR ---
PATIENT ALERT AND VERBALLY RESPONSIVE. CHADIAN SPEAKING.CONTINUE ON ON HIGH FLOW O2 AT 40L AND NONREBREATHER AT 15L. PT SATURATING AT 90-92% ON O2 MONITOR.HOB ELEVATED.NSR ON TELE.COMPLIANT WITH MEDICATION.MIDLINE ON RT UA 18G PATENT AND INTACT.CONTINUE ON COVID ISOLATION.CONTINUE SAFETY MEASURES. CALL LIGHT WITH IN REACH. SON AT BEDSIDE .WILL CONTINUE TO MONITOR.
[2021-04-23 20:30] VITALS: BP 124/59
[2021-04-23 22:30] VITALS: BP 124/59
[2021-04-23] MEDS: TEMAZEPAM 7.5 MG CAPSULE PO PRN (22:55)
[2021-04-24 00:10] VITALS: BP 130/62
[2021-04-24 04:30] VITALS: BP 137/57
[2021-04-24 04:57] LABS: COCCIDIOIDES CF SERUM Negative
[2021-04-24 04:58] LABS: CRYPTOCOCCUS AB, SERUM Negative
[2021-04-24] MEDS: DEXAMETHASONE SOD PHOSPHATE 4 MG INJ IV SCH ×3 (05:14→21:30)
[2021-04-24] MEDS: LEVOTHYROXINE SODIUM 50 MCG TABLET PO SCH (06:04)
[2021-04-24] MEDS: PANTOPRAZOLE SODIUM 40 MG TABLET.DR PO SCH (06:04)
[2021-04-24] MEDS: CHOLECALCIFEROL 1,000 UNIT TABLET PO SCH (08:09)
[2021-04-24] MEDS: ASPIRIN EC 81 MG TABLET.DR PO SCH (08:09)
[2021-04-24] MEDS: JAKAFI 10 MG PO SCH ×2 (08:10→20:45)
[2021-04-24] MEDS: ASCORBIC ACID 500 MG TABLET PO SCH (08:10)
[2021-04-24] MEDS: HEPARIN SODIUM,PORCINE 5,000 UNITS/ML VIAL SQ SCH ×2 (08:10→21:30)
[2021-04-24] MEDS: DOCUSATE SODIUM 100 MG CAPSULE PO SCH ×2 (08:10→20:44)
[2021-04-24] MEDS: ENSURE ENLIVE (VAN) 240 ML LIQUID PO SCH ×3 (08:11→16:26)
[2021-04-24] MEDS: MIRALAX 17 GM POWD.PACK PO SCH (08:29)
--- NOTE | 2021-04-24 10:00 | NUR ---
Received patient in bed, on covid unit for isolation. Patient on high flow oxygen of 40L with 100% Fio2 and 15L nonrebreather mask. Patient wants to sit on the chair beside his bed. After an hour patient assisted back to bed , 02 sat is 89% after 2-3 mins went up to 95% once patient was on the bed. All due meds given per MD order. Call light within reach , all needs attended promptly. Urine sample given for urinalysis. Right upper arm midline intact. Kept skin clean and dry.
[2021-04-24 12:00] VITALS: BP 141/84
[2021-04-24 12:39] LABS: *BILIRUBIN,URIN NEGATIVE (NEGATIVE); *BLOOD, URINE 1+ (NEGATIVE); *COLOR,URINE YELLOW (YELLOW); *KETONES,URINE NEGATIVE (NEGATIVE); *UROBILINOGEN,URINE 0.2 E.U./dl (NORMAL); LEUKOCYTE ESTERASE ,URINE NEGATIVE (NEGATIVE); NITRITE, URINE NEGATIVE (NEGATIVE); PH,URINE 5.5 (5.0-8.0); UGLUCOSE TRACE (NEGATIVE)
[2021-04-24 12:40] LABS: *CLARITY,URINE SLIGHTLY CLOUDY (CLEAR)
[2021-04-24 12:46] LABS: MUCUS,URINE FEW /LPF (0-FEW); RBC,URINE 0-3 /HPF (0-3)
[2021-04-24 12:47] LABS: CALCIUM OXALATE CRYSTALS,UR FEW /HPF (NONE SEEN); COARSE GRANULAR CASTS,URINE FEW /LPF
[2021-04-24 12:52] LABS: SQUAMOUS EPITHELIAL CELL,UR FEW /HPF (NONE SEEN)
[2021-04-24 12:53] LABS: URINE AMORPHOUS URATE FEW /HPF; WBC,URINE 0-3 /HPF (0-3)
[2021-04-24 12:54] LABS: BACTERIA,URINE FEW /HPF (NONE SEEN)
[2021-04-24] MEDS: ACETAMINOPHEN 325 MG TABLET PO PRN ×2 (13:23→20:45)
[2021-04-24] MEDS ORDERED: VANCOMYCIN IV 1,000 MG in IV DEXTROSE 5% 250 ML IV ONE (14:30)
[2021-04-24] MEDS: FLUCONAZOLE 200 MG TABLET PO SCH (15:48)
[2021-04-24 16:00] VITALS: BP 100/62
[2021-04-24] MEDS ORDERED: IV NS 1000 ML 1,000 ML IV PRN (16:00)
[2021-04-24] MEDS: MEROPENEM 1 G in IV NORMAL SALINE 100 ML IV SCH (17:34)
[2021-04-24 20:21] VITALS: BP 122/61
[2021-04-24] MEDS: TAMSULOSIN HCL 0.4 MG CAP.SR.24H PO SCH (20:46)
[2021-04-24] MEDS ORDERED: MEROPENEM 0.5 G in IV NORMAL SALINE 50 ML IV SCH (22:00)
--- NOTE | 2021-04-24 22:06 | NUR ---
Received patient resting bed, son at bedside. Pt axo x4, Serbian/ Colombian speaking. Able to communicate with pt in Colombian. Patient on high flow oxygen of 40L with 100% Fio2 and 15L nonrebreather mask saturating @ 90-93%. All due medications administered and tolerated well. Administered PRN Tylenol. On TELE monitor sinus rhythm . Midline GAETANO patent and intact.Pt is continent of both B/B. Needs attended to promptly. Skin intact. Safety measures and covid isolation precautions maintained. Will continue to monitor throughout the night.
[2021-04-24] MEDS: TEMAZEPAM 7.5 MG CAPSULE PO PRN (22:41)
[2021-04-25 00:06] VITALS: BP 130/50
[2021-04-25] MEDS: MEROPENEM 1 G in IV NORMAL SALINE 100 ML IV SCH ×3 (00:47→16:35)
[2021-04-25 04:21] VITALS: BP 119/47
[2021-04-25] MEDS: DEXAMETHASONE SOD PHOSPHATE 4 MG INJ IV SCH ×3 (06:26→21:46)
[2021-04-25] MEDS: LEVOTHYROXINE SODIUM 50 MCG TABLET PO SCH (06:26)
[2021-04-25] MEDS: PANTOPRAZOLE SODIUM 40 MG TABLET.DR PO SCH (06:26)
[2021-04-25 06:31] LABS: HEMATOCRIT 35.7 % (36.7-47.1); MEAN CORPUSCULAR HEMOGLOBIN 31.1 uug (23.8-33.4); MEAN CORPUSCULAR VOLUME 93.4 fL (73.0-96.2); PLATELET COUNT (AUTO) 227 K/uL (152-348)
[2021-04-25 06:42] LABS: CREATININE 1.3 mg/dL (0.6-1.3); MAGNESIUM 2.5 mg/dL (1.8-2.4); PHOSPHOROUS 4.5 mg/dL (2.5-4.9); POTASSIUM 5.1 mmol/L (3.5-5.1); VANCOMYCIN,RANDOM 7.7 ug/mL (18.0-26.0)
[2021-04-25 08:00] VITALS: BP 147/70
[2021-04-25] MEDS: ASCORBIC ACID 500 MG TABLET PO SCH (08:53)
[2021-04-25] MEDS: MIRALAX 17 GM POWD.PACK PO SCH (08:53)
[2021-04-25] MEDS: DOCUSATE SODIUM 100 MG CAPSULE PO SCH ×2 (08:53→20:15)
[2021-04-25] MEDS: ASPIRIN EC 81 MG TABLET.DR PO SCH (08:53)
[2021-04-25] MEDS: CHOLECALCIFEROL 1,000 UNIT TABLET PO SCH (08:53)
[2021-04-25] MEDS: HEPARIN SODIUM,PORCINE 5,000 UNITS/ML VIAL SQ SCH ×2 (08:55→20:15)
[2021-04-25] MEDS ORDERED: VANCOMYCIN IV 1,000 MG in IV DEXTROSE 5% 250 ML IV ONE (09:00)
[2021-04-25] MEDS: ENSURE ENLIVE (VAN) 240 ML LIQUID PO SCH ×3 (09:03→17:21)
[2021-04-25] MEDS: JAKAFI 10 MG PO SCH ×2 (10:19→20:14)
[2021-04-25 12:00] VITALS: BP 144/69
[2021-04-25] MEDS: FLUCONAZOLE 200 MG TABLET PO SCH (13:38)
--- NOTE | 2021-04-25 14:14 | NUR ---
PT CONTINUES TO BE ON HFNC 40 LPM, 100% FIO2 AND 15 LPM NRB MASK, DOUBLE SETUP. PT STABLE THROUGHOUT SHIFT, SPO2 BETWEEN 90-95% AT REST. PT HAS SOB ON EXERTION. CONT. P.OX AT BEDSIDE. STERILE H2O BAG AND CANNULA CHANGED DURING SHIFT. MEPILEX PLACED ON SKIN FOR SKIN PROTECTION AND COMFORT. WILL CONTINUE TO MONITOR.
[2021-04-25 16:00] VITALS: BP 135/70
--- NOTE | 2021-04-25 18:30 | NUR ---
Received patient a/ox4. Noted with desaturation at 75% on minimal exertion. O2 sat was maintained at 91-92% when rested on high flow oxygen. IV site intact. MD seen patient to continue current treatment and plan. All needs attended, and due medications given. Safety precautions maintained. Frequent checks done. Will continue to monitor for any significant changes and will endorse to the next shift. Art (son) updated.
[2021-04-25] MEDS ORDERED: IPRATROPIUM BROMIDE 0.5 MG/2.5 ML NEBU NEB SCH (19:30)
[2021-04-25] MEDS ORDERED: ALBUTEROL SULFATE 2.5 MG/ 0.5 ML NEBU NEB SCH (19:30)
[2021-04-25] MEDS: TAMSULOSIN HCL 0.4 MG CAP.SR.24H PO SCH (20:14)
[2021-04-25 20:30] VITALS: BP 138/66
[2021-04-25] MEDS: TRAZODONE 100 MG TABLET PO SCH (23:00)
[2021-04-26 00:30] VITALS: BP 136/71
[2021-04-26] MEDS: MEROPENEM 1 G in IV NORMAL SALINE 100 ML IV SCH ×3 (01:17→17:26)
[2021-04-26] MEDS: DEXAMETHASONE SOD PHOSPHATE 4 MG INJ IV SCH ×3 (05:45→21:37)
[2021-04-26] MEDS: PANTOPRAZOLE SODIUM 40 MG TABLET.DR PO SCH (06:22)
[2021-04-26] MEDS: LEVOTHYROXINE SODIUM 50 MCG TABLET PO SCH (06:22)
[2021-04-26 06:26] VITALS: BP 121/74
[2021-04-26 06:39] LABS: HEMATOCRIT 34.7 % (36.7-47.1); MEAN CORPUSCULAR VOLUME 92.1 fL (73.0-96.2); PLATELET COUNT (AUTO) 191 K/uL (152-348)
[2021-04-26 06:56] LABS: CREATININE 1.2 mg/dL (0.6-1.3); MAGNESIUM 2.7 mg/dL (1.8-2.4); PHOSPHOROUS 4.5 mg/dL (2.5-4.9); POTASSIUM 5.2 mmol/L (3.5-5.1); VANCOMYCIN,RANDOM 8.1 ug/mL (18.0-26.0)
[2021-04-26 07:12] LABS: BAND % (MANUAL) 6 % (0-10); LYMPHOCYTES % (MANUAL) 7 % (20-40); METAMYELOCYTES % 1 % (0-1); MONOCYTES % (MANUAL) 6 % (2-10); NEUTROPHILS % (MANUAL) 80 % (42-75)
--- NOTE | 2021-04-26 07:30 | NUR ---
Received patient awake, alert and oriented to self. Pt is on 2L of oxygen. Restraints have been taken off. Patient is calm and cooperative at this time. Safety measures implemented. Will continue to monitor. Addendum: 04/26/21 at 1850 by CHRISTINE GRAHAM RN wrong patient.
--- NOTE | 2021-04-26 07:30 | NUR ---
Received patient in bed awake, alert and oriented times 4. Patient is still on high flow oxygen 40L FIO2 100% and non-rebreather 15 L. Patient breathing is labored, use of accessory muscles noted. Oxygen saturation was in the 80s, reposition patient and sat him up. Patient eventually started sating in the 90s. Safety precautions are in place. Will continue to monitor.
[2021-04-26 08:30] VITALS: BP 127/57
[2021-04-26] MEDS: JAKAFI 10 MG PO SCH ×2 (08:54→20:12)
[2021-04-26] MEDS: MIRALAX 17 GM POWD.PACK PO SCH (08:55)
[2021-04-26] MEDS: DOCUSATE SODIUM 100 MG CAPSULE PO SCH ×2 (08:55→20:12)
[2021-04-26] MEDS: ASCORBIC ACID 500 MG TABLET PO SCH (08:55)
[2021-04-26] MEDS: ASPIRIN EC 81 MG TABLET.DR PO SCH (08:55)
[2021-04-26] MEDS: CHOLECALCIFEROL 1,000 UNIT TABLET PO SCH (08:55)
[2021-04-26] MEDS: HEPARIN SODIUM,PORCINE 5,000 UNITS/ML VIAL SQ SCH ×2 (08:56→20:14)
[2021-04-26] MEDS: ENSURE ENLIVE (VAN) 240 ML LIQUID PO SCH ×3 (08:57→17:26)
[2021-04-26 11:56] VITALS: BP 115/67
[2021-04-26] MEDS: FLUCONAZOLE 200 MG TABLET PO SCH (13:36)
--- NOTE | 2021-04-26 14:45 | NUR ---
Went into patient room after an echo was administered. Found patient's IV line disconnected on the floor and blood pooled on the floor from IV line backing up. Disconnected from patient and flushed multiple times. Cleaned up mess and made MD aware. Asked for an order for an H&H STAT. Will continue to monitor.
[2021-04-26 15:06] VITALS: BP 146/68
[2021-04-26 15:21] LABS: HEMATOCRIT 37.6 % (36.7-47.1)
[2021-04-26] MEDS: VANCOMYCIN IV 750 MG in IV DEXTROSE 5% 250 ML IV SCH (15:21)
--- NOTE | 2021-04-26 18:55 | NUR ---
Patient hemoglobin is currently at 12.1. Made MD aware. Gave all medication as ordered. Safety precautions still in place. Will endorse to the oncoming nurse.
[2021-04-26] MEDS: TAMSULOSIN HCL 0.4 MG CAP.SR.24H PO SCH (20:12)
[2021-04-26 20:25] VITALS: BP 129/77
[2021-04-26] MEDS: TRAZODONE 100 MG TABLET PO SCH (23:18)
[2021-04-27 00:05] VITALS: BP 137/71
[2021-04-27] MEDS: MEROPENEM 1 G in IV NORMAL SALINE 100 ML IV SCH ×3 (01:46→16:56)
[2021-04-27] MEDS: VANCOMYCIN IV 750 MG in IV DEXTROSE 5% 250 ML IV SCH ×2 (04:03→15:46)
[2021-04-27 04:15] VITALS: BP 125/66
--- NOTE | 2021-04-27 05:16 | NUR ---
Pt sleeping and in no distress at this time. Pt O2 ranges from 88%-94% on 40L high flow and 15L NR. Cannot tolerate lying flat. Relaxation techniques used, tolerated well. Denies pain at this time. IV intact. Sinus rhythm on the monitor. Safety and comfort provided. No other issues or concerns at this time, will endorse to day shift.
[2021-04-27] MEDS: PANTOPRAZOLE SODIUM 40 MG TABLET.DR PO SCH (06:06)
[2021-04-27] MEDS: DEXAMETHASONE SOD PHOSPHATE 4 MG INJ IV SCH ×2 (06:06→20:03)
[2021-04-27] MEDS: LEVOTHYROXINE SODIUM 50 MCG TABLET PO SCH (06:06)
--- NOTE | 2021-04-27 06:22 | NUR ---
When giving morning meds, patient started coughing and desated to 72%. Called RT stat, suctioned mouth and patient's saturation went to 85%. Pt now is in no distress and at 90%. Swallow eval ordered for patient
[2021-04-27 06:27] LABS: HEMATOCRIT 33.5 % (36.7-47.1); MEAN CORPUSCULAR HEMOGLOBIN 31.2 uug (23.8-33.4); MEAN CORPUSCULAR VOLUME 93.2 fL (73.0-96.2); PLATELET COUNT (AUTO) 162 K/uL (152-348)
[2021-04-27 07:07] LABS: BILIRUBIN,DIRECT 0.3 mg/dL (0.0-0.2); CREATININE 1.3 mg/dL (0.6-1.3); MAGNESIUM 2.7 mg/dL (1.8-2.4); PHOSPHOROUS 4.5 mg/dL (2.5-4.9); POTASSIUM 5.2 mmol/L (3.5-5.1); TOTAL PROTEIN, SERUM 5.5 g/dL (6.4-8.2)
[2021-04-27] MEDS: CHOLECALCIFEROL 1,000 UNIT TABLET PO SCH (09:33)
[2021-04-27] MEDS: DOCUSATE SODIUM 100 MG CAPSULE PO SCH ×2 (09:33→20:03)
[2021-04-27] MEDS: ASPIRIN EC 81 MG TABLET.DR PO SCH (09:33)
[2021-04-27] MEDS: MIRALAX 17 GM POWD.PACK PO SCH (09:33)
[2021-04-27] MEDS: ASCORBIC ACID 500 MG TABLET PO SCH (09:33)
[2021-04-27] MEDS: JAKAFI 10 MG PO SCH ×2 (09:34→20:05)
[2021-04-27] MEDS: ENSURE ENLIVE (VAN) 240 ML LIQUID PO SCH ×3 (09:35→16:55)
[2021-04-27] MEDS: HEPARIN SODIUM,PORCINE 5,000 UNITS/ML VIAL SQ SCH ×2 (09:36→20:13)
[2021-04-27 11:57] VITALS: BP 138/75
[2021-04-27 14:32] LABS: BAND % (MANUAL) 5 % (0-10); EOSINOPHILS % (MANUAL) 1 % (0-8); LYMPHOCYTES % (MANUAL) 6 % (20-40); MONOCYTES % (MANUAL) 8 % (2-10); NEUTROPHILS % (MANUAL) 80 % (42-75)
[2021-04-27] MEDS: FLUCONAZOLE 200 MG TABLET PO SCH (15:46)
[2021-04-27 16:16] VITALS: BP 146/73
--- NOTE | 2021-04-27 17:39 | NUR ---
DIET CHANGED TO PUREE WITH ASPIRATION PRECAUTIONS
--- NOTE | 2021-04-27 19:30 | NUR ---
RECEIVED PT AWAKE,ALERT AND ORIENTEDX4. PT IN NO ACUTE DISTRESS. IV INTACT. SAFETY AND COMFORT PROVIDED. PT ON HIGH FLOW 40% AND NONREBREATHER MASK15%. WILL CONTINUE TO MONITOR.
[2021-04-27] MEDS: ACETAMINOPHEN 325 MG TABLET PO PRN (20:03)
[2021-04-27] MEDS: TAMSULOSIN HCL 0.4 MG CAP.SR.24H PO SCH (20:03)
[2021-04-27 20:42] VITALS: BP 120/65
[2021-04-27] MEDS: TRAZODONE 100 MG TABLET PO SCH (22:07)
[2021-04-28 00:23] VITALS: BP 110/67
[2021-04-28] MEDS: MEROPENEM 1 G in IV NORMAL SALINE 100 ML IV SCH ×3 (00:25→17:01)
[2021-04-28] MEDS: VANCOMYCIN IV 750 MG in IV DEXTROSE 5% 250 ML IV SCH ×2 (02:48→15:50)
[2021-04-28 04:17] VITALS: BP 128/65
--- NOTE | 2021-04-28 05:40 | NUR ---
PT SLEPT INTERMITTENTLY. PT IN NO ACUTE RESPIRATORY DISTRESS. IV INTACT. PRESCRIBED MEDICATION GIVEN AND PT TOLERATED IT WELL. TYLENOL PRN GIVEN AT 2003H. PT AFEBRILE. SAFETY AND COMFORT PROVIDED. ALL NEEDS ARE MET. WILL ENDORSE TO INCOMING NURSE FOR CONTINUITY OF CARE.
[2021-04-28] MEDS: PANTOPRAZOLE SODIUM 40 MG TABLET.DR PO SCH (06:20)
[2021-04-28] MEDS: LEVOTHYROXINE SODIUM 50 MCG TABLET PO SCH (06:20)
[2021-04-28 06:33] LABS: HEMATOCRIT 37.5 % (36.7-47.1); MEAN CORPUSCULAR HEMOGLOBIN 31.1 uug (23.8-33.4); PLATELET COUNT (AUTO) 208 K/uL (152-348)
[2021-04-28 06:50] LABS: CARBON DIOXIDE 28 mmol/L (21-32); CHLORIDE 99 mmol/L (98-107); CREATININE 1.4 mg/dL (0.6-1.3); GLUCOSE 186 mg/dL (74-106); MAGNESIUM 2.9 mg/dL (1.8-2.4); PHOSPHOROUS 4.4 mg/dL (2.5-4.9); POTASSIUM 5.9 mmol/L (3.5-5.1); UREA NITROGEN, BLOOD 50 mg/dL (7-18)
--- NOTE | 2021-04-28 07:30 | NUR ---
Received patient resting in bed. AOx3-4. On 40L Highflow and 15L Nonrebreather, saturating at 90-93%. NSR on monitor. No signs of acute distress. Patient denies pain/ discomfort. Will continue to monitor.
[2021-04-28] MEDS: JAKAFI 10 MG PO SCH (07:52)
[2021-04-28] MEDS: ASPIRIN EC 81 MG TABLET.DR PO SCH (08:11)
[2021-04-28] MEDS: HEPARIN SODIUM,PORCINE 5,000 UNITS/ML VIAL SQ SCH ×2 (08:11→20:20)
[2021-04-28] MEDS: DEXAMETHASONE SOD PHOSPHATE 4 MG INJ IV SCH ×2 (08:11→20:23)
[2021-04-28] MEDS: ENSURE ENLIVE (VAN) 240 ML LIQUID PO SCH ×3 (08:12→17:40)
[2021-04-28] MEDS: MIRALAX 17 GM POWD.PACK PO SCH (08:12)
[2021-04-28] MEDS: CHOLECALCIFEROL 1,000 UNIT TABLET PO SCH (08:12)
[2021-04-28] MEDS: DOCUSATE SODIUM 100 MG CAPSULE PO SCH ×2 (08:12→20:24)
[2021-04-28] MEDS: ASCORBIC ACID 500 MG TABLET PO SCH (08:12)
[2021-04-28 12:00] VITALS: BP 138/70
--- NOTE | 2021-04-28 13:45 | NUR ---
PT DESATURATES TO THE LOW 80'S ON EXERTION, INCREASED WOB NOTED. RETRACTIONS AND ACCESSORY MUSCLES BEING USED. SPO2 86-91% AT REST. CONT. P.OX AT BEDSIDE. PT SON AT BEDSIDE. WILL CONTINUE TO MONITOR.
[2021-04-28] MEDS: ACIDOPHILUS/BULGARICUS CHEW TAB PO SCH ×2 (13:46→22:04)
[2021-04-28] MEDS: FLUCONAZOLE 200 MG TABLET PO SCH (14:58)
[2021-04-28 15:20] LABS: BAND % (MANUAL) 5 % (0-10); EOSINOPHILS % (MANUAL) 1 % (0-8); LYMPHOCYTES % (MANUAL) 6 % (20-40); MONOCYTES % (MANUAL) 3 % (2-10); NEUTROPHILS % (MANUAL) 85 % (42-75)
[2021-04-28 15:55] VITALS: BP 127/71
--- NOTE | 2021-04-28 17:10 | NUR ---
Intel Analyst spoke with patient's son. Patient's son informed insurance underwriter that patient's oncologist stated patient to discontinue taking Jakafi while admitted. Patient's son also informed insurance underwriter requesting to discontinue Trazodone. Will inform
--- NOTE | 2021-04-28 18:00 | NUR ---
PT REMAINS ON HFNC 40 LPM, 100% FIO2 AND 15LPM NRB MASK DOUBLE SETUP. PT SHOWS DISTRESS ON EXERTION AND DURING EATING AND DRINKING. PT OCCASIONALLY DESATURATES TO THE LOW 80'S BUT ABLE TO RECOVER. PT SAT'S BETWEEN 88-94% WHILE AT REST. CONT. P.OX AT BEDSIDE. WILL CONTINUE TO MONITOR.
--- NOTE | 2021-04-28 18:50 | NUR ---
Patient resting in bed. AOx3-4. On 40L Highflow 100% FIO2 and 15L O2 via nonrebreather mask, saturating at 88-92% at rest. Patient desaturates on exertion to the low 80s. Patient NSR on broomcorn press feeder. Patient denies pain/ discomfort. Safety measures provided. Needs anticipated and given. Will endorse to incoming shift for continuity of care.
[2021-04-28 19:54] VITALS: BP 145/75
[2021-04-28] MEDS ORDERED: JAKAFI 10 MG PO SCH (20:00)
[2021-04-28] MEDS ORDERED: SODIUM POLYSTYRENE SULFONATE 15 G/60 ML LIQUID UDC PO ONE (20:15)
[2021-04-28] MEDS: TAMSULOSIN HCL 0.4 MG CAP.SR.24H PO SCH (20:24)
--- NOTE | 2021-04-28 23:34 | NUR ---
Received patient on bed, AOx3-4. Remains on continuous 40L highflow 100% FIO2 and 15L O2 via nonrebreather mask, saturating at 88-92% at rest. Noted to desaturate on exertion/taking meds to the low 80s and picks up slowly. Patient NSR on threat monitoring analyst. No complaints of pain and discomfort at this time. Safety measures provided. All needs attended. Call light placed within reach. Frequent visual checks done. Will continue to monitor.
[2021-04-29] MEDS: MEROPENEM 1 G in IV NORMAL SALINE 100 ML IV SCH ×3 (00:01→16:26)
[2021-04-29 00:12] VITALS: BP 131/73
[2021-04-29] MEDS: VANCOMYCIN IV 750 MG in IV DEXTROSE 5% 250 ML IV SCH (03:02)
[2021-04-29 04:37] VITALS: BP 131/67
[2021-04-29] MEDS: ACIDOPHILUS/BULGARICUS CHEW TAB PO SCH ×3 (05:24→21:10)
[2021-04-29] MEDS: PANTOPRAZOLE SODIUM 40 MG TABLET.DR PO SCH (06:00)
[2021-04-29] MEDS: LEVOTHYROXINE SODIUM 50 MCG TABLET PO SCH (06:00)
--- NOTE | 2021-04-29 06:39 | NUR ---
Patient slept intermittently throughout the night, AOx3-4. Remains on continuous 40L highflow 100% FIO2 and 15L O2 via nonrebreather mask, saturating at 89-94% at rest. Noted to desaturate on exertion/taking meds to the low 80s and picks up slowly. Denies pain and discomfort. All needs attended. Call light placed within reach. Frequent visual checks done. Will endorse to next for continuity of care.
[2021-04-29 07:01] LABS: HEMATOCRIT 38.3 % (36.7-47.1); MEAN CORPUSCULAR HEMOGLOBIN 31.2 uug (23.8-33.4); MEAN CORPUSCULAR VOLUME 95.3 fL (73.0-96.2); PLATELET COUNT (AUTO) 191 K/uL (152-348)
[2021-04-29 07:29] LABS: CREATININE 1.2 mg/dL (0.6-1.3); MAGNESIUM 3.2 mg/dL (1.8-2.4); POTASSIUM 5.5 mmol/L (3.5-5.1)
--- NOTE | 2021-04-29 08:00 | NUR ---
Awake, anxious. O2 per Hi flow at 40 L 100% FIO2 and NRB at 15L with O2 sat of 88-92%. Repositioned in bed comfortably. Encouraged to relax. RT at bedside.
[2021-04-29] MEDS: DEXAMETHASONE SOD PHOSPHATE 4 MG INJ IV SCH ×2 (08:43→20:26)
[2021-04-29] MEDS: ASPIRIN EC 81 MG TABLET.DR PO SCH (08:44)
[2021-04-29] MEDS: DOCUSATE SODIUM 100 MG CAPSULE PO SCH ×2 (08:44→20:28)
[2021-04-29] MEDS: ASCORBIC ACID 500 MG TABLET PO SCH (08:44)
[2021-04-29] MEDS: MIRALAX 17 GM POWD.PACK PO SCH (08:44)
[2021-04-29] MEDS: CHOLECALCIFEROL 1,000 UNIT TABLET PO SCH (08:45)
[2021-04-29] MEDS: HEPARIN SODIUM,PORCINE 5,000 UNITS/ML VIAL SQ SCH ×2 (08:46→20:35)
[2021-04-29] MEDS: ENSURE ENLIVE (VAN) 240 ML LIQUID PO SCH ×3 (09:02→16:27)
[2021-04-29] MEDS: LORAZEPAM 0.5 MG TABLET PO PRN (09:04)
--- NOTE | 2021-04-29 09:05 | NUR ---
Patient still anxious. Ativan po given. Son at bedside, supportive and assisting with needs.
[2021-04-29] MEDS ORDERED: SODIUM POLYSTYRENE SULFONATE 15 G/60 ML LIQUID UDC PO ONE (09:30)
[2021-04-29 11:11] VITALS: BP 122/83
--- NOTE | 2021-04-29 12:26 | NUR ---
Sleeping with O2 sat of 94% with O2 of Hi flow at 40L 100% FIO2 and NRB 15L
[2021-04-29] MEDS: FLUCONAZOLE 200 MG TABLET PO SCH (14:11)
--- NOTE | 2021-04-29 15:00 | NUR ---
SOB at rest and on exertion. O2 desaturation to 80%. Encouraged to relax. O2 sat 90%
[2021-04-29 15:30] VITALS: BP 123/83
[2021-04-29] MEDS: FUROSEMIDE 20 MG/2 ML VIAL IV SCH (16:26)
--- NOTE | 2021-04-29 18:03 | NUR ---
Calm, 93% O2 sat with hi flow O2 at 40L 100% FIO2.
[2021-04-29] MEDS: DOXYCYCLINE HYCLATE IV 100 MG in IV DEXTROSE 5% 100 ML IV SCH (20:27)
[2021-04-29] MEDS: TAMSULOSIN HCL 0.4 MG CAP.SR.24H PO SCH (20:28)
[2021-04-29 20:35] VITALS: BP 137/75
[2021-04-29] MEDS ORDERED: DOXYCYCLINE HYCLATE IV 200 MG in IV DEXTROSE 5% 250 ML IV SCH (21:00)
[2021-04-30] MEDS: MEROPENEM 1 G in IV NORMAL SALINE 100 ML IV SCH ×3 (00:17→21:06)
[2021-04-30 00:31] VITALS: BP 120/62
--- NOTE | 2021-04-30 03:05 | NUR ---
PATIENT HAS BEEN ON HIGH FLOW NASAL CANNULA WITH 100%,@ 40L/M WITH NRB MASK IN PLACE, WITH PULSE OXY CONT AT BEDSIDE, CHECK HIGH FLOW PERIODICALLY, CHANGE H2O BAG, SAT 94-95% APPROX. Garrett VILLASEÑORP Addendum: 04/30/21 at 0307 by RHONDA SOTO RT Amended: Links added.
[2021-04-30 04:38] VITALS: BP 123/71
[2021-04-30 06:06] LABS: HEMATOCRIT 38.1 % (36.7-47.1); MEAN CORPUSCULAR VOLUME 93.3 fL (73.0-96.2); PLATELET COUNT (AUTO) 171 K/uL (152-348)
[2021-04-30] MEDS: ACIDOPHILUS/BULGARICUS CHEW TAB PO SCH ×3 (06:23→21:13)
[2021-04-30] MEDS: PANTOPRAZOLE SODIUM 40 MG TABLET.DR PO SCH (06:23)
[2021-04-30] MEDS: LEVOTHYROXINE SODIUM 50 MCG TABLET PO SCH (06:24)
--- NOTE | 2021-04-30 06:43 | NUR ---
END OF SHIFT REPORT Patient tolerated present Duo Max set up; hygiene care done; sone at bedside last night; needs attended; safety maintained; continue to monitor.
[2021-04-30 06:55] LABS: CARBON DIOXIDE 24 mmol/L (21-32); CHLORIDE 104 mmol/L (98-107); CREATININE 1.5 mg/dL (0.6-1.3); GLUCOSE 183 mg/dL (74-106); POTASSIUM 4.8 mmol/L (3.5-5.1); UREA NITROGEN, BLOOD 73 mg/dL (7-18)
[2021-04-30 07:33] LABS: ALANINE AMINOTRANSFERASE 26 U/L (16-63); ALKALINE PHOSPHATASE 120 U/L (50-136); ASPARTATE AMINOTRANSFERASE 35 U/L (15-37); BILIRUBIN,DIRECT 0.4 mg/dL (0.0-0.2); BILIRUBIN,TOTAL 1.2 mg/dL (0.2-1.0); FERRITIN 1638 ng/mL (26-388); MAGNESIUM 3.2 mg/dL (1.8-2.4); PHOSPHOROUS 4.5 mg/dL (2.5-4.9); TOTAL PROTEIN, SERUM 5.7 g/dL (6.4-8.2)
--- NOTE | 2021-04-30 08:00 | NUR ---
RECEIVED PATIENT IN BED AWAKE ALERT AND AWARE EASILY IRRITATED HE IS ABLE TO MAKE SIMPLE NEEDS KNOWN REMAIN ON ANTIBIOTICS ORDERED WITH NO ADVANCE OR ALLERGIC REACTIONS AT THIS TIME MID LINE IS INTACT WITH NO S/S OF INFILTERATION AT THIS TIME.REMAIN ON O2 40 LITERS HIGH FLOW AND 15 LITERS NON REBREATHER MASK WITH NO SHORTNESS OF BREATH AT THIS TIME O2 SATS IS BETWEEN 91-93 PERCENT ON TELE SR WITH NO ECTOPY REMAIN ON COVID ISOLATION AND PRECAUTION AT THIS TIME CALL LIGHTS ARE WITHIN EASY. APPETITE CONTINUES TO BE POOR MADE COMFORTABLE WILL CONTINUE TO OBSERVE.
[2021-04-30 08:02] LABS: LACTATE DEHYDROGENASE 1394 U/L (85-227)
[2021-04-30] MEDS: ASCORBIC ACID 500 MG TABLET PO SCH (08:29)
[2021-04-30] MEDS: CHOLECALCIFEROL 1,000 UNIT TABLET PO SCH (08:29)
[2021-04-30] MEDS: MIRALAX 17 GM POWD.PACK PO SCH (08:30)
[2021-04-30] MEDS: DEXAMETHASONE SOD PHOSPHATE 4 MG INJ IV SCH ×2 (08:30→21:10)
[2021-04-30] MEDS: FUROSEMIDE 20 MG/2 ML VIAL IV SCH (08:30)
[2021-04-30] MEDS: ASPIRIN EC 81 MG TABLET.DR PO SCH (08:30)
[2021-04-30] MEDS: DOCUSATE SODIUM 100 MG CAPSULE PO SCH ×2 (08:30→21:10)
[2021-04-30] MEDS: HEPARIN SODIUM,PORCINE 5,000 UNITS/ML VIAL SQ SCH ×2 (08:31→21:30)
[2021-04-30] MEDS: ENSURE ENLIVE (VAN) 240 ML LIQUID PO SCH ×3 (09:00→16:43)
[2021-04-30] MEDS: DOXYCYCLINE HYCLATE IV 100 MG in IV DEXTROSE 5% 100 ML IV SCH ×2 (10:44→23:48)
[2021-04-30] MEDS: LORAZEPAM 0.5 MG TABLET PO PRN ×2 (11:51→22:46)
--- NOTE | 2021-04-30 11:52 | NUR ---
PATIENT IS VERY ANXIOUS FOUND MANY TIMES WITH O2 CANULLA FOR HIS HI FLOW NOT IN PLACE DESPITE THE FACT THAT THE CANILLA IS TAPPED TO THE SIDE OF HIS FACE SON HERE TO VISIT AND ASSISTING WITH TRANSLATING AND CALMING HIM DOWN PATIENT AT THIS TIME3 MEDICATED WITH ATIVAN ORDERED MADE COMFORTABLE.
[2021-04-30 12:00] VITALS: BP 129/82
[2021-04-30] MEDS: FLUCONAZOLE 200 MG TABLET PO SCH (13:41)
[2021-04-30 14:05] LABS: BAND % (MANUAL) 3 % (0-10); EOSINOPHILS % (MANUAL) 2 % (0-8); LYMPHOCYTES % (MANUAL) 5 % (20-40); MONOCYTES % (MANUAL) 5 % (2-10); NEUTROPHILS % (MANUAL) 85 % (42-75)
[2021-04-30 16:00] VITALS: BP 127/72
--- NOTE | 2021-04-30 17:12 | NUR ---
RESTING IN BED WITH NO C/O AT THIS TIME.
--- NOTE | 2021-04-30 18:34 | NUR ---
NOTED VAPOUR THEM CANULLA NOT IN PLACE AND HIS SATS IS AT 84-85 PERCENT REAPPLIED AND TAPED AND SATS CAME UP TO 90 NOT SUSTAINING AND DROPS DOWN TO 88 PERCENT SON IS AT THE BEDSIDE RESPIRATORY THERAPIST CALLED AND HE IS HERE ASSISTING WITH GETTING HIS SATS HIGHER.
[2021-04-30 20:15] VITALS: BP 122/76
[2021-04-30] MEDS: TAMSULOSIN HCL 0.4 MG CAP.SR.24H PO SCH (21:10)
--- NOTE | 2021-04-30 21:58 | NUR ---
Received patient awake alert and oriented x4 watching TV. Son at bedside. Patient on high flow oxygen 40L and 15L nonrebreather mask, pulse ox 91% Tolerated po meds well. VSS. Needs attended. Kept comfortable. Will monitor patient. IV ABT given as ordered. Repositioned for comfort. Incontinent of bowel and bladder. Kept clean and dry. No BM noted this shift. Seen by Dr Morse. Son request NGT for patient, says patient appetite poor maybe better for tube feeds. Will reevaluate in am.
[2021-04-30] MEDS: ACETAMINOPHEN 325 MG TABLET PO PRN (22:46)
--- NOTE | 2021-04-30 23:03 | NUR ---
patient very restless and very agitated. Ativan 0.5 mg po given. Tylenol also given per patient request. Needs attended. Will monitor for any behavioral changes. No acute distress noted. Fall precautions maintained. Siderails up for safety.
[2021-05-01] VITALS (73 sets, daily range): BP systolic 51–134; BP diastolic 24–94
--- NOTE | 2021-05-01 01:02 | NUR ---
PATIENT HAS BEEN ON CONT HFNC 100% @ 4OL/M WITH NRB MASK , SAT 92- 95%, STABLE. D BRITTANY MANAGER DESKTOP Addendum: 05/01/21 at 0103 by RHONDA SOTO RT Amended: Links added.
--- NOTE | 2021-05-01 03:59 | NUR ---
AAOx4 Patient on 40% high flow with 15L non-rebreather mask. On continous pulse ox 90-92% On telemetry patient been in sinus rythm.
--- NOTE | 2021-05-01 04:02 | NUR ---
Patient had been having periods of forgetfulness. Patient been pulling oxygen, pulse ox 35%. SOB noted. Will monitor patient. Needs attended. Instructed patient not to removed oxygen. Able to comprehend but still forgets.
--- NOTE | 2021-05-01 04:19 | NUR ---
Patient still having difficulty breathing. Respiratory aware. pulse ox 76-80% Will monitor patient.
--- NOTE | 2021-05-01 04:30 | NUR ---
received patient and case on 100% nrb mask , patient is awake , labored breathing mid line on laura , patient is placed on bipap 15.5 rate of 18 100 % fio2 for 10 min , patient saturating is sustaining of 80's , dr seals is informed of possible intubation of the patient , rt 's at bedside
--- NOTE | 2021-05-01 04:45 | NUR ---
dr seals a bedside , intubated patient
--- NOTE | 2021-05-01 05:00 | NUR ---
cxr was done to confirm placement
--- NOTE | 2021-05-01 05:04 | NUR ---
patient transferred to ICU by Dr Kraft for better monitoring. Son(Art) aware of patient's transfer to ICU.
[2021-05-01] MEDS ORDERED: SUCCINYLCHOLINE CHLORIDE 200 MG/10 ML VIAL IV ONE (05:10)
[2021-05-01] MEDS ORDERED: ETOMIDATE 20 MG/10 ML VIAL IV ONE (05:10)
--- NOTE | 2021-05-01 05:10 | NUR ---
tried to insert ngt twice , unable feeling resistance . jackson inserted 16 fr
[2021-05-01] MEDS ORDERED: PROPOFOL 100 ML IV PRN (05:15)
--- NOTE | 2021-05-01 05:15 | NUR ---
ett was advance one centimeter per dr seals order , rt did it
--- NOTE | 2021-05-01 05:55 | NUR ---
PATIENT WITH INCREASE RESP DISTRESS ON FLOOR 314- HIGH FLOW SAT 78-80% , NURSE INFORMED, PT THEN TRANSPORTED TO CCU # 4, THEN BI/PAP ON ORDER DR REGLA JACOBSON ; NURSE VERDE INFORMED RT, 15/01 RR18 100%, PT NOT IMPROVING, THEN CALLING DR EVERETT IN ER, TO JUST INTUBATED PT, AMBU BAG ,VENTILATION BY RTS, ET/TUBE IN PLACE 7.5 23LIP , INITIAL SETTINGS, VT 550ML, A/C 16, 100%, PEEP 5, WITH ANCHOR FAST IN PLACE WITH ABG TO FOLLOW . Garrett SOTO BULK FOLDER Addendum: 05/01/21 at 0559 by RHONDA SOTO RT Amended: Links added.
[2021-05-01] MEDS: ACIDOPHILUS/BULGARICUS CHEW TAB PO SCH ×3 (06:00→21:31)
--- NOTE | 2021-05-01 06:15 | NUR ---
art the son was called notified of intubation , and current status , request full treatment
[2021-05-01] MEDS: PANTOPRAZOLE SODIUM 40 MG TABLET.DR PO SCH (06:22)
[2021-05-01] MEDS: LEVOTHYROXINE SODIUM 50 MCG TABLET PO SCH (06:22)
[2021-05-01 06:36] LABS: ABG BASE EXCESS -20.2 mmol/L; ABG HCO3 13.5 mmol/L; ABG PCO2 70.4 mmHg (35.0-45.0); ABG PO2 98.3 mmHg (75.0-100.0); ABG SITE LEFT RADIAL; ABG TOTAL HEMOGLOBIN 13.8 G/dL (13.5-18.0); COHb 1.1 % (0.5-1.5); MetHb 0.6 % (0.0-1.5); O2Hb 88.8 % (94.0-97.0); VENT MODE VENT - A/C; VT, ABG 550 mL
--- NOTE | 2021-05-01 06:45 | NUR ---
dr mack is notified of current status of the patient intubated , low blood pressure , intermittently unable to obtain blood pressure , , ordered ns bolus 1l x 1 , then start levophed if needed
[2021-05-01] MEDS ORDERED: IV NS 1000 ML 1,000 ML IV ONE ×2 (07:00→07:45)
--- NOTE | 2021-05-01 07:00 | NUR ---
patient is non responsive with sluggish eyes , labored shallow agonal breathing noted , ns 1 l started , dr rueda was finally able to be informed of abg results , vent settings of ac 22 tv 550 p5 fio2 100 % , mid line dressing was changed .
--- NOTE | 2021-05-01 07:00 | NUR ---
tried to call dr rueda three times , exchanged not working anble to communicate , finally got hold of him , abg results was read , received order 1 ampule of sodium bicarb x1
[2021-05-01] MEDS ORDERED: NOREPINEPHRINE BITARTRATE 4 MG/4 ML VIAL IV ONE (07:23)
--- NOTE | 2021-05-01 07:32 | NUR ---
Pt received in bed, laying semi-Barraza's, unable to communicate.. Orally intubated, ETT 7.[address] and secure with anchor fast.. Current mechanical ventilation: settings A/C 22, Vt 550, PEEP +8, FiO2 100%, will continue to monitor.. BVM at bedside.. Alarms on and audible.. Will continue to monitor..
--- NOTE | 2021-05-01 07:36 | NUR ---
Notified Dr. Gonzalez that patient was intubated overnight. Requested labs. Received orders.
[2021-05-01] MEDS ORDERED: SODIUM BICARBONATE 8.4% 50 MEQ/50 ML DISP.SYRIN IV STA (07:44)
--- NOTE | 2021-05-01 08:00 | NUR ---
Picc line team notified of need for picc line as ordered Per Dr. Gonzalez.
[2021-05-01] MEDS ORDERED: Z GUARD REMEDY PASTE 57 GM TUBE TOP PRN (08:30)
[2021-05-01 08:36] LABS: HEMATOCRIT 38.1 % (36.7-47.1)
[2021-05-01 08:38] LABS: MEAN CORPUSCULAR HEMOGLOBIN 30.9 uug (23.8-33.4); PLATELET COUNT (AUTO) 189 K/uL (152-348)
[2021-05-01] MEDS: ENSURE ENLIVE (VAN) 240 ML LIQUID PO SCH ×2 (09:00→12:27)
--- NOTE | 2021-05-01 09:00 | NUR ---
Insertion of NG tube to right nares, cxr ordered for placement.
[2021-05-01] MEDS: NOREPINEPHRINE BITARTRATE 8 MG in IV NORMAL SALINE 242 ML IV PRN ×2 (09:22→23:56)
--- NOTE | 2021-05-01 09:35 | NUR ---
Reported lactic acid, troponin and WBC critical labs to Dr. Gonzalez and Dr. Chakraborty. Dr. Chakraborty to place orders for Fluid challenge 1.4 L NS.
[2021-05-01] MEDS ORDERED: NS IV ONE (09:45)
[2021-05-01] MEDS: DEXAMETHASONE SOD PHOSPHATE 4 MG INJ IV SCH ×2 (10:02→20:51)
[2021-05-01] MEDS: ASPIRIN EC 81 MG TABLET.DR PO SCH (10:02)
[2021-05-01] MEDS: DOCUSATE SODIUM 100 MG CAPSULE PO SCH ×2 (10:03→20:51)
[2021-05-01] MEDS: MIRALAX 17 GM POWD.PACK PO SCH (10:03)
[2021-05-01] MEDS: ASCORBIC ACID 500 MG TABLET PO SCH (10:03)
[2021-05-01] MEDS: CHOLECALCIFEROL 1,000 UNIT TABLET PO SCH (10:03)
[2021-05-01] MEDS: DOXYCYCLINE HYCLATE IV 100 MG in IV DEXTROSE 5% 100 ML IV SCH ×2 (10:13→20:49)
[2021-05-01] MEDS: PROPOFOL 100 ML IV PRN ×2 (10:58→17:51)
[2021-05-01] MEDS ORDERED: GLUCERNA 1.2 1000ML LIQUID GT PRN (11:00)
--- NOTE | 2021-05-01 11:30 | NUR ---
Tube feeding initiated per recommendations of Dietary, maximum today per Dr. Gonzalez should be 50CC/hr as tolerated.
[2021-05-01 11:37] LABS: ABG BASE EXCESS -12.8 mmol/L; ABG HCO3 18.3 mmol/L; ABG PCO2 69.7 mmHg (35.0-45.0); ABG PH 7.038 (7.350-7.450); ABG PO2 104.2 mmHg (75.0-100.0); ABG SITE RIGHT RADIAL; ABG TOTAL HEMOGLOBIN 11.7 G/dL (13.5-18.0); COHb 1.1 % (0.5-1.5); MetHb 0.5 % (0.0-1.5); O2Hb 93.3 % (94.0-97.0); VENT MODE VENT - A/C; VT, ABG 500 mL
[2021-05-01] MEDS: MEROPENEM 1 G in IV NORMAL SALINE 100 ML IV SCH ×2 (12:25→21:00)
[2021-05-01] MEDS: ENOXAPARIN SODIUM 80 MG/0.8 ML DISP.SYRIN SQ SCH ×2 (12:26→20:52)
[2021-05-01] MEDS: FLUCONAZOLE 200 MG TABLET PO SCH (13:20)
[2021-05-01] MEDS ORDERED: SUCCINYLCHOLINE CHLORIDE 200 MG/10 ML VIAL MC ONE (14:14)
[2021-05-01] MEDS ORDERED: ETOMIDATE 20 MG/10 ML VIAL MC ONE (14:14)
[2021-05-01 14:40] LABS: NEUTROPHILS % (MANUAL) 85 % (42-75)
[2021-05-01 14:41] LABS: BAND % (MANUAL) 3 % (0-10); EOSINOPHILS % (MANUAL) 2 % (0-8); LYMPHOCYTES % (MANUAL) 6 % (20-40); MONOCYTES % (MANUAL) 4 % (2-10)
[2021-05-01 14:55] LABS: *BILIRUBIN,URIN NEGATIVE (NEGATIVE); *CLARITY,URINE SLIGHTLY CLOUDY (CLEAR); *COLOR,URINE YELLOW (YELLOW); *KETONES,URINE NEGATIVE (NEGATIVE); *UROBILINOGEN,URINE 0.2 E.U./dl (NORMAL); LEUKOCYTE ESTERASE ,URINE NEGATIVE (NEGATIVE); NITRITE, URINE NEGATIVE (NEGATIVE); PH,URINE 5.5 (5.0-8.0); UGLUCOSE NEGATIVE (NEGATIVE)
[2021-05-01 15:03] LABS: *BLOOD, URINE TRACE (NEGATIVE)
[2021-05-01 15:06] LABS: BACTERIA,URINE FEW /HPF (NONE SEEN); SQUAMOUS EPITHELIAL CELL,UR MODERATE /HPF (NONE SEEN); URINE AMORPHOUS URATE MANY /HPF
--- NOTE | 2021-05-01 15:17 | NUR ---
Notified Dr. Peguero and Dr Gonzalez of minimal urine output for patient. Dr. Peguero stated that he will be having a dialysis catheter placed this evening and possibly start dialysis tomorrow.
[2021-05-01 16:30] LABS: CARBON DIOXIDE 24 mmol/L (21-32); CHLORIDE 107 mmol/L (98-107); CREATININE 2.8 mg/dL (0.6-1.3); FERRITIN 26264 ng/mL (26-388); GLUCOSE 147 mg/dL (74-106); MAGNESIUM 3.4 mg/dL (1.8-2.4); POTASSIUM 5.2 mmol/L (3.5-5.1)
[2021-05-01 16:33] LABS: PHOSPHOROUS 11.9 mg/dL (2.5-4.9); UREA NITROGEN, BLOOD 95 mg/dL (7-18)
[2021-05-01] MEDS ORDERED: PHENYLEPHRINE IV 50 MG in IV NORMAL SALINE 245 ML IV PRN (20:00)
[2021-05-01] MEDS: TAMSULOSIN HCL 0.4 MG CAP.SR.24H PO SCH (20:53)
--- NOTE | 2021-05-01 21:00 | NUR ---
Lovenox not given due to bleeding from the oral cavity and from previous heparin injection sites.
--- NOTE | 2021-05-01 22:00 | NUR ---
Spoke to the son Art and he was requesting information on if it would be ok to start his father back on the ruxolitinib he was taking at home. I informed him that I cannot make that decision and he needs to speak to his physicians and they can explain what that medication is used for and if they do or do not want to administer that medication in his current condition. The son expressed concern that stopping the ruxolitinib may be the cause of his rapid decline. I again stated that is something he needs to discuss with the physicians caring for his father.
--- NOTE | 2021-05-01 23:37 | NUR ---
PATIENT ON CONT PB 840 VENT WITH 7.5 ET/TUBE IN PLACE AND SECURED WITH ANCHOR FAST, ROTATE Q2 HOURS, SETTINGS, A/C 22, 550ML, PEEP 8, FIO2 @ 100%, PT DOES ASSIST AT TIMES, VERY WEAK, PT OS SEDATED , SUCTIONED LIGHT PALE YELL TINGE SECRETIONS, SLIGHT BLOODY TINGE FOR NOSE AND CORNER OF LIP, PRIOR TO INTUBATION FROM THE MASK AND HFNC, PT WOULD PULL IT OFF CAUSING IRRITATION, ALL VENT ALARMS GOOD, AMBU BAG AT BEDSIDE, VENT PLUGGED INTO RED WALL OUTLET. Garrett SOTO RCP Addendum: 05/01/21 at 2341 by RHONDA SOTO RT Amended: Links added.
[2021-05-02] VITALS (37 sets, daily range): BP systolic 35–203; BP diastolic 10–76
[2021-05-02] MEDS ORDERED: ALBUMIN HUMAN 25% 100 ML IV PRN (01:15)
--- NOTE | 2021-05-02 01:29 | NUR ---
Dialysis stopped. Patient not tolerating dialysis. BP dropping precipitously and currently unreadable.
[2021-05-02] MEDS ORDERED: PHENYLEPHRINE 10 MG/1 ML VIAL ONE (01:40)
[2021-05-02] MEDS: NOREPINEPHRINE BITARTRATE 32 MG in IV NORMAL SALINE 218 ML IV PRN ×2 (02:20→09:02)
[2021-05-02] MEDS: PROPOFOL 100 ML IV PRN ×2 (03:20→08:24)
[2021-05-02 04:03] LABS: ABG BASE EXCESS -22.6 mmol/L; ABG HCO3 11.1 mmol/L; ABG PCO2 64.1 mmHg (35.0-45.0); ABG PH 6.855 (7.350-7.450); ABG PO2 143.2 mmHg (75.0-100.0); ABG SITE LEFT FEMORAL; ABG TOTAL HEMOGLOBIN 11.8 G/dL (13.5-18.0); COHb 0.8 % (0.5-1.5); MetHb 0.6 % (0.0-1.5); O2Hb 96.6 % (94.0-97.0); VENT MODE VENT - A/C; VT, ABG 550 mL
[2021-05-02] MEDS ORDERED: SODIUM BICARBONATE 8.4% 50 MEQ/50 ML DISP.SYRIN IV ONE ×4 (04:30→09:15)
[2021-05-02 05:06] LABS: HEMATOCRIT 31.4 % (36.7-47.1); MEAN CORPUSCULAR HEMOGLOBIN 32.2 uug (23.8-33.4); MEAN CORPUSCULAR VOLUME 103.3 fL (73.0-96.2); PLATELET COUNT (AUTO) 78 K/uL (152-348)
--- NOTE | 2021-05-02 05:20 | NUR ---
Received call back from Dr. Sadler, gave report on patient's condition/ABG results, as well as ER MD's order for 2 amps bicarb while i was awaiting call back. Dr. Sadler ordered 1 additional amp Bicarb 8.4% IV Push now and start a D5 1/2NS + 3 amps bicarb(150mEq) @100mL/Hr.
[2021-05-02] MEDS ORDERED: SODIUM BICARBONATE 8.4% 150 MEQ in IV D5 1/2 NS 1000 ML 1,000 ML IV PRN (05:30)
--- NOTE | 2021-05-02 05:30 | NUR ---
Spoke with the son Art and gave him a report on his fathers condition. I informed him that his father is in grave condition and how he started to decline rapidly causing us to have to max him out on vasopressors and have an arterial line put in by the ER physician just to get a blood pressure reading. Son wishes for us to do absolutely everything we can for his father, which I told him we are doing just that.
[2021-05-02 06:03] LABS: ALANINE AMINOTRANSFERASE 975 U/L (16-63); ALKALINE PHOSPHATASE 149 U/L (50-136); ASPARTATE AMINOTRANSFERASE 923 U/L (15-37); BILIRUBIN,DIRECT 2.6 mg/dL (0.0-0.2); BILIRUBIN,TOTAL 3.1 mg/dL (0.2-1.0); CARBON DIOXIDE 20 mmol/L (21-32); CHLORIDE 107 mmol/L (98-107); GLUCOSE 69 mg/dL (74-106); LACTATE DEHYDROGENASE 2392 U/L (85-227); MAGNESIUM 3.7 mg/dL (1.8-2.4); TOTAL PROTEIN, SERUM 3.8 g/dL (6.4-8.2)
[2021-05-02 06:04] LABS: BAND % (MANUAL) 17 % (0-10); LYMPHOCYTES % (MANUAL) 4 % (20-40); MONOCYTES % (MANUAL) 3 % (2-10); NEUTROPHILS % (MANUAL) 76 % (42-75)
[2021-05-02] MEDS ORDERED: VASOPRESSIN 40 UNIT in IV NORMAL SALINE 40 ML IV PRN (06:30)
[2021-05-02] MEDS ORDERED: PHENYLEPHRINE IV 100 MG in IV NORMAL SALINE 240 ML IV PRN (06:45)
[2021-05-02] MEDS: PANTOPRAZOLE SODIUM 40 MG TABLET.DR PO SCH (06:52)
[2021-05-02] MEDS: LEVOTHYROXINE SODIUM 50 MCG TABLET PO SCH (06:52)
[2021-05-02] MEDS: ACIDOPHILUS/BULGARICUS CHEW TAB PO SCH (06:52)
[2021-05-02 06:55] LABS: PHOSPHOROUS 10.5 mg/dL (2.5-4.9)
[2021-05-02 06:56] LABS: POTASSIUM 7.4 mmol/L (3.5-5.1); UREA NITROGEN, BLOOD 107 mg/dL (7-18)
--- NOTE | 2021-05-02 07:10 | NUR ---
Received pt. on ventilator A/C 22, Tv550, 100% FIO2, PEEP8 pt. with saturation of 98-100%. Cardiac-mast pt. maxed out on levophed, neosynephrine, and vasopressin. NG clamped and as reported pt. NPO for now due to high risk for aspiration pt. lying flat. NO SBP on automatic bp cuff. Arterial line patent, zero with readings above 90's. pt.cold with pulses barely palpable.Picc line LUE 3lumen patent. Chavez to gravity with dark brianne output in very minimal amount. Skuin over all clean Unable to assess his back pt. not tolerating been moved.
[2021-05-02 07:22] LABS: FERRITIN 13893 ng/mL (26-388)
[2021-05-02] MEDS ORDERED: SODIUM BICARBONATE 8.4% 150 MEQ in IV D5W 1000ML 1,000 ML IV SCH (08:00)
[2021-05-02] MEDS: MIRALAX 17 GM POWD.PACK PO SCH (08:16)
[2021-05-02] MEDS: ASCORBIC ACID 500 MG TABLET PO SCH (08:16)
[2021-05-02] MEDS: CHOLECALCIFEROL 1,000 UNIT TABLET PO SCH (08:16)
[2021-05-02] MEDS: DEXAMETHASONE SOD PHOSPHATE 4 MG INJ IV SCH (08:16)
[2021-05-02] MEDS: DOCUSATE SODIUM 100 MG CAPSULE PO SCH (08:17)
[2021-05-02] MEDS: DOXYCYCLINE HYCLATE IV 100 MG in IV DEXTROSE 5% 100 ML IV SCH (08:20)
--- NOTE | 2021-05-02 08:30 | NUR ---
Pulmonary services, Dr. Chakraborty in the unit to see and examine pt. report given to him by cross country coach RSilvioN and at 0820 Dr. Chakraborty gave a call to pt's PCP and updated her on pt's current condition and prognosis. Vent change orders received and implemented as well. A/C 30, Tv600, 100% FIO2, PEEP +8.
[2021-05-02] MEDS ORDERED: ASPIRIN EC 81 MG TABLET.DR PO SCH (09:00)
[2021-05-02] MEDS ORDERED: PROTEIN SUPPLEMENT (PROSTAT) 30 ML LIQUID GT SCH (09:00)
[2021-05-02] MEDS ORDERED: ENOXAPARIN SODIUM 80 MG/0.8 ML DISP.SYRIN SQ SCH (09:00)
--- NOTE | 2021-05-02 09:00 | NUR ---
Environmental Health Specialist Dr. Montgomery in the unit to see and examine pt. report given as stated DrSilvio will place some orders. And orders to continue with care plan received.
[2021-05-02] MEDS ORDERED: CALCIUM CHLORIDE 1 GM/10 ML DISP.SYRIN IVP ONE (09:15)
[2021-05-02] MEDS ORDERED: MORPHINE SULFATE 2 MG/1 ML DISP.SYRIN IV PRN (11:15)
[2021-05-02] MEDS ORDERED: MORPHINE SULFATE 4 MG/1 ML DISP.SYRIN IV PRN (11:30)
--- NOTE | 2021-05-02 11:30 | NUR ---
Attending Physician Lito Gonzalez in the unit to meet with pt's son and daughter and grand-daughter. At this time orders for terminal extubation received. Himself with family present at 1144 all in the room. RT Narendra in the room and pt. removed from ventilator placed 4Liter NC. all drip off and pt premedicated with morphine. No signs of discomfort noted. will continue to monitor.
--- NOTE | 2021-05-02 11:57 | NUR ---
comfort measures in progress.
--- NOTE | 2021-05-02 12:05 | NUR ---
PATIENT APNEIC FOR 5 MINUTES PUPILS FIXED AND DILATED. NO CORNEAL REFLEXED. NO AUDIBLE HEART TONES. NO BREATH SOUND FOR 1 MINUTE. PATIENT TERMINALLY EXTUBATED AND ON COMFORT MEASURES PRONOUNCED BY GMATEOS RN.
--- NOTE | 2021-05-02 12:05 | NUR ---
Patient at [address] Orr called to be notified. [facility] called spoke with Toyin and as stated by her due to Covid diagnosis [facility] will not pursued any organ donation and body is release with /[id number].
--- NOTE | 2021-05-02 12:57 | NUR ---
All disciplines involved in patient care called to be notified of pt's time. Nursing supervisor bridges and buildings, attending and family present at bedside. Addendum: 05/02/21 at 1329 by PAT CORONA RN BELONGINGS TAKEN HOME BY PT'S GRAND-DAUGHTER DEVANG WHO SIGNED THE BELONGINGS.
--- NOTE | 2021-05-02 14:30 | NUR ---
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
[2021-05-02] MEDS ORDERED: MEROPENEM 0.5 G in IV NORMAL SALINE 50 ML IV SCH (21:00)
[2021-05-03 05:06] LABS: HEPATITIS B SURFACE AG Negative (Negative)
== END 2021-05-02 13:05 | DRG 871 ==
LOC: ER 01:56 → TELE3 04:18 → CCU 05-01 04:45
PROVIDERS: ADMIT Family Medicine; ATTEND Internal Medicine
PROC: 05HY33Z Insertion of Infusion Device into Upper Vein, Percutaneous Approach (ICD-10-PCS; 2021-04-14)
PROC: 05HC33Z Insertion of Infusion Device into Left Basilic Vein, Percutaneous Approach (ICD-10-PCS; 2021-04-23)
PROC: 5A1945Z Respiratory Ventilation, 24-96 Consecutive Hours (ICD-10-PCS; principal; 2021-05-01)
PROC: 0BH17EZ Insertion of Endotracheal Airway into Trachea, Via Natural or Artificial Opening (ICD-10-PCS; 2021-05-01)
PROC: 02HV33Z Insertion of Infusion Device into Superior Vena Cava, Percutaneous Approach (ICD-10-PCS; 2021-05-01)
PROC: B548ZZA Ultrasonography of Superior Vena Cava, Guidance (ICD-10-PCS; 2021-05-01)
PROC: 02HV33Z Insertion of Infusion Device into Superior Vena Cava, Percutaneous Approach (ICD-10-PCS; 2021-05-01)
PROC: B548ZZA Ultrasonography of Superior Vena Cava, Guidance (ICD-10-PCS; 2021-05-01)
PROC: 5A1D70Z Performance of Urinary Filtration, Intermittent, Less than 6 Hours Per Day (ICD-10-PCS; 2021-05-02)
DX: A41.89 Other specified sepsis (principal); U07.1 COVID-19; J12.82 Pneumonia due to coronavirus disease 2019; J96.01 Acute respiratory failure with hypoxia; N17.0 Acute kidney failure with tubular necrosis; Z51.5 Encounter for palliative care; Z66 Do not resuscitate; E43 Unspecified severe protein-calorie malnutrition; J96.02 Acute respiratory failure with hypercapnia; R65.21 Severe sepsis with septic shock; K72.00 Acute and subacute hepatic failure without coma; J15.0 Pneumonia due to Klebsiella pneumoniae; I21.A1 Myocardial infarction type 2; D68.59 Other primary thrombophilia; E87.4 Mixed disorder of acid-base balance; D69.6 Thrombocytopenia, unspecified; E03.9 Hypothyroidism, unspecified; E11.22 Type 2 diabetes mellitus with diabetic chronic kidney disease; N18.9 Chronic kidney disease, unspecified; E87.6 Hypokalemia; D64.9 Anemia, unspecified; E87.5 Hyperkalemia; F41.9 Anxiety disorder, unspecified; I46.9 Cardiac arrest, cause unspecified; J98.4 Other disorders of lung; K59.00 Constipation, unspecified; D45 Polycythemia vera; N40.0 Benign prostatic hyperplasia without lower urinary tract symptoms; Z87.01 Personal history of pneumonia (recurrent); Z87.891 Personal history of nicotine dependence
CPT/HCPCS: 36415; 36569; 36600; 70030-TC; 71045; 76770; 83550; 83605; 83615; 83735; 84100; 84300; 84443; 85018; 85025; 85610; 85730; 86140; 86480; 86706; 87040; 87070; 87077; 87086; 87328; 87340; 93005; 93307; 94002; 94003; 94660; 94760; A4663; A6209; G0378; J0330; J0692; J1100; J1200; J1644; J1650; J1940; J1956; J2185; J2270; J2370; J2405; J2920; J3262; J3370; J3480; J3490; J3535; J7030; J7040; J7050; J7060; J7070; U0003